=== PATIENT | male | born 1960 | race Caucasian/White ===

== ENCOUNTER → 2018-08-04 | Outpatient (CLI) | payer MEDICARE ==
[~2018-08-04] MED LIST: ADV250INH INH; ALBU0.084 INH; AMIT25TA10 PO; AVOD0.5C PO; BETA2500 PO; CETI10TA3 PO; CITA40TA PO; CLON1TAB PO; CYCL10TA3 PO; DILA2TAB6 PO; FLON0.05 INH; GUAI400T PO; MELO7.5T3 PO; NEUR300C PO; OMEP40CA2 PO; ONETAB4 PO; SAWPOW PO; ULTR50TA PO; VENTAER INH; ZOLP-189 PO
--- NOTE | 2018-08-04 15:11 | REP ---
LUMBAR SPINE SERIES: Five views. HISTORY: Low back pain. FINDINGS: Five views of the lumbar spine shows straightening of the normal lumbar lordosis. There is degenerative disc narrowing at the L4-5 with early osteophyte formation at this level. Mild discogenic spurring is seen anteriorly L3-4 and L2-3 as well. Pedicles and posterior elements are intact. There are clips in right upper quadrant of the abdomen. Sacrum and SI joints are intact. IMPRESSION: Degenerative disc changes most pronounced at L4-5. No acute abnormality. Electronically Signed by Zack Mendez MD 08/04/2018 03:14 P
== END ==
LOC: M RAD 12:38
PROVIDERS: ATTEND Physician Assistant
DX: M51.36 Other intervertebral disc degeneration, lumbar region (principal); M25.78 Osteophyte, vertebrae

== ENCOUNTER → 2018-12-06 | Outpatient (REF) | payer MEDICARE ==
[2018-12-06 16:58] LABS: PLATELET COUNT, AUTOMATED 289 10^3/uL (150-450)
[2018-12-06 17:14] LABS: INR 1.05; PROTHROMBIN TIME 13.4 SECONDS (11.8-14.0)
== END ==
LOC: M LABDRAW1 14:04
PROVIDERS: ATTEND Physical Medicine & Rehabilitation
DX: Z01.812 Encounter for preprocedural laboratory examination (principal); Z79.51 Long term (current) use of inhaled steroids; Z79.899 Other long term (current) drug therapy

== ENCOUNTER 2019-10-30 12:25 | Emergency (ER) | payer MEDICARE, OTHER ==
[~2019-10-30 12:25] MED LIST changes: +GI COCKTAIL 50ML BTL(HYOSCYAMINE/MAALOX/LIDOCAINE VISCOUS)(1:3:1) ONE; +KETOROLAC 30 MG/ML 1ML VIAL As Ordered ONE; +KETOROLAC 30 MG/ML 1ML VIAL ONE; +ONDANSETRON 4MG/2ML VIAL As Ordered ONE; +ONDANSETRON 4MG/2ML VIAL ONE
[2019-10-30] MEDS ORDERED: GI COCKTAIL 50ML BTL(HYOSCYAMINE/MAALOX/LIDOCAINE VISCOUS)(1:3:1) As Ordered ONE (12:55)
[2019-12-03 02:58] LABS: INR 0.91; PROTHROMBIN TIME 12.5 SECONDS (11.8-14.0)
[2019-12-03 03:23] LABS: HEMATOCRIT 41.6 % (42.0-52.0); HEMOGLOBIN 15.2 g/dl (13.5-17.5); MEAN CORPUSCULAR HEMOGLOBIN 35.8 pg (27.0-33.0); MEAN CORPUSCULAR HGB CONC 36.5 g/dl (32.0-36.5); MEAN CORPUSCULAR VOLUME 97.9 fl (80.0-96.0); PLATELET COUNT, AUTOMATED 261 10^3/uL (150-450); RED BLOOD COUNT 4.25 10^6/uL (4.30-6.10); WHITE BLOOD COUNT 7.4 10^3/uL (4.0-10.0)
[2019-12-03 03:37] LABS: APPEARANCE, URINE CLEAR (CLEAR); BACTERIA, URINE AUTO NEGATIVE (NEGATIVE); BILIRUBIN, URINE AUTO NEGATIVE (NEGATIVE); BLOOD, URINE BLOOD NEGATIVE (NEGATIVE); COLOR, URINE YELLOW (YELLOW); GLUCOSE, URINE (UA) AUTO NEGATIVE (NEGATIVE); KETONE, URINE AUTO NEGATIVE (NEGATIVE); LEUKOCYTE ESTERASE, URINE AUTO NEGATIVE (NEGATIVE); NITRITE, URINE AUTO NEGATIVE (NEGATIVE); PROTEIN, URINE AUTO NEGATIVE (NEGATIVE); RBC, URINE AUTO 0 /HPF (0-3); SPECIFIC GRAVITY URINE AUTO 1.015 (1.002-1.035); SQUAMOUS EPITHELIAL CELL UR AU 0 /HPF (0-6); UROBILINOGEN, URINE AUTO 0.2 mg/dL (0.0-2.0); WBC, URINE AUTO 0 /HPF (0-3)
[2019-12-05 21:49] LABS: ALBUMIN 3.9 GM/DL (3.2-5.2); ALT/SGPT 26 U/L (12-78); AMYLASE 44 U/L (25-115); BILIRUBIN,TOTAL 0.4 MG/DL (0.2-1.0); BLOOD UREA NITROGEN 9 MG/DL (7-18); CALCIUM LEVEL 8.9 MG/DL (8.5-10.1); CARBON DIOXIDE LEVEL 28 MEQ/L (21-32); CHLORIDE LEVEL 108 MEQ/L (98-107); CREATININE FOR GFR 0.83 MG/DL (0.70-1.30); GLOMERULAR FILTRATION RATE > 60.0 (>56); GLUCOSE, FASTING 85 MG/DL (70-100); LIPASE 155 U/L (73-393); POTASSIUM SERUM 4.8 MEQ/L (3.5-5.1); SODIUM LEVEL 139 MEQ/L (136-145); TOTAL PROTEIN 6.9 GM/DL (6.4-8.2)
== END 2019-10-30 14:50 | disposition home or self-care (01) ==
LOC: M ED 12:25
DX: K29.20 Alcoholic gastritis without bleeding (principal); F10.10 Alcohol abuse, uncomplicated; K46.9 Unspecified abdominal hernia without obstruction or gangrene; F17.200 Nicotine dependence, unspecified, uncomplicated; Z88.2 Allergy status to sulfonamides; Z88.6 Allergy status to analgesic agent
CPT/HCPCS: 74176; 80053; 81001; 82150; 83690; 85027; 85610; 96374; 96375; 99284; G0480; J1885; J2405

== ENCOUNTER 2020-06-29 11:40 | Emergency (ER) | payer MEDICARE ==
[~2020-06-29] VITALS: Ht 177.8 cm; Wt 77.3 kg
[~2020-06-29 11:40] MED LIST changes: -GI COCKTAIL 50ML BTL(HYOSCYAMINE/MAALOX/LIDOCAINE VISCOUS)(1:3:1) ONE; -KETOROLAC 30 MG/ML 1ML VIAL As Ordered ONE; -KETOROLAC 30 MG/ML 1ML VIAL ONE; -ONDANSETRON 4MG/2ML VIAL As Ordered ONE; -ONDANSETRON 4MG/2ML VIAL ONE
--- NOTE | 2020-06-29 12:28 | REP ---
INDICATION: CHEST PAIN. COMPARISON: PA and lateral chest dated 02/13/2016. TECHNIQUE: Portable AP chest with the patient upright, 2 AP views.. FINDINGS: The lung arriaga are clear. Cardiac size is normal. The olegario, mediastinum and skeletal structures are unremarkable. IMPRESSION: Essentially negative portable chest <Electronically signed by Aamir Hassan > 06/29/20 1228
[2020-06-29] MEDS ORDERED: methylPREDNISolone 125MG 2ML VIAL IV ONE (12:40)
[2020-06-29] MEDS ORDERED: ACETAMINOPHEN 325 MG TAB PO ONE (12:45)
[2020-06-29] MEDS: ALBUTEROL 90 MCG/ACT 8GM HFA INHALER INH SCH ×3 (12:55→13:31)
[2020-06-29 12:56] LABS: VENOUS HCO3 27.4 MEQ/L (23.0-27.0); VENOUS O2 SATURATION 79.9 % (60.0-80.0); VENOUS PARTIAL PRESSURE CO2 45.4 mmHg (38.0-50.0); VENOUS PARTIAL PRESSURE O2 40.8 mmHg (30.0-50.0); VENOUS PH 7.399 UNITS (7.330-7.430); VENOUS STANDARD HCO3 25.7 MEQ/L; VENOUS TOTAL CO2 28.8 MEQ/L (24.0-28.0)
[2020-06-29 13:01] LABS: BASO # 0.1 10^3/uL (0.0-0.2); BASO % 1.2 % (0.0-1.0); EOS # 0.1 10^3/uL (0.0-0.5); EOS % 0.5 % (0.0-3.0); HEMATOCRIT 45.3 % (42.0-52.0); HEMOGLOBIN 15.9 g/dl (13.5-17.5); LYMPH # 1.7 10^3/uL (1.5-5.0); LYMPH % 17.7 % (24.0-44.0); MEAN CORPUSCULAR HEMOGLOBIN 34.4 pg (27.0-33.0); MEAN CORPUSCULAR HGB CONC 35.1 g/dl (32.0-36.5); MEAN CORPUSCULAR VOLUME 98.1 fl (80.0-96.0); MONO # 0.8 10^3/uL (0.0-0.8); MONO % 8.5 % (2.0-8.0); NEUTROPHILS # 7.1 10^3/uL (1.5-8.5); NEUTROPHILS % 71.8 % (36.0-66.0); PLATELET COUNT, AUTOMATED 285 10^3/uL (150-450); RED BLOOD COUNT 4.62 10^6/uL (4.30-6.10); WHITE BLOOD COUNT 9.8 10^3/uL (4.0-10.0)
[2020-06-29 13:26] LABS: BLOOD UREA NITROGEN 9 MG/DL (7-18); CALCIUM LEVEL 9.2 MG/DL (8.5-10.1); CARBON DIOXIDE LEVEL 30 MEQ/L (21-32); CHLORIDE LEVEL 106 MEQ/L (98-107); CK-MB VALUE MASS 1.7 NG/ML (<3.6); CPK CREATINE PHOSPHOKINASE 74 U/L (39-308); CREATININE FOR GFR 0.79 MG/DL (0.70-1.30); GLOMERULAR FILTRATION RATE > 60.0 (>56); GLUCOSE, FASTING 95 MG/DL (70-100); NT-PRO BNP 25 PG/ML (<125); SODIUM LEVEL 139 MEQ/L (136-145); TROPONIN I < 0.02 NG/ML (< 0.10)
[2020-06-29 16:20] VITALS: BP 137/82
--- NOTE | 2020-06-29 19:12 | ECGEPIP ---
[facility] - ED Test Date: 2020-06-29 Pat Name: TRAVIS JADE Department: Room: - Gender: Male Director Outcomes: JAMIL : 1960 Requested By: Saima Capone Order Number: [id number] Reading MD: Saima Capone Measurements Intervals [place] Rate: 77 P: 74 RI: 124 QRS: 99 QRSD: 88 T: 79 QT: 350 QTc: 396 Interpretive Statements Normal sinus rhythm Rightward axis Nonspecific ST T wave changes Delayed R wave progression No prior ECG for comparison Electronically Signed on 06-29-2020 19:11:52 EDT by Saima Capone
== END 2020-06-29 16:20 | disposition home or self-care (01) ==
LOC: M ED 11:40
DX: B34.9 Viral infection, unspecified (principal); J44.1 Chronic obstructive pulmonary disease with (acute) exacerbation; M94.0 Chondrocostal junction syndrome [Tietze]; R06.02 Shortness of breath; J45.909 Unspecified asthma, uncomplicated; F17.200 Nicotine dependence, unspecified, uncomplicated; Z88.2 Allergy status to sulfonamides; Z88.5 Allergy status to narcotic agent; Z88.6 Allergy status to analgesic agent; Z88.1 Allergy status to other antibiotic agents; Z88.8 Allergy status to other drugs, medicaments and biological substances; Z79.899 Other long term (current) drug therapy; Z79.51 Long term (current) use of inhaled steroids
CPT/HCPCS: 71045; 80048; 82550; 82553; 82803; 83880; 84484; 85025; 87798; 93005; 93041; 96374; 99285; J2930

== ENCOUNTER 2020-08-26 12:44 | Emergency (ER) | payer MEDICARE ==
[~2020-08-26] VITALS: Ht 170.2 cm; Wt 52.7 kg
[2020-08-26] MEDS ORDERED: ONDA8TAB10 (13:01)
[2020-08-26] MEDS ORDERED: DULO1CAP6 (13:01)
[2020-08-26] MEDS ORDERED: ACET650T15 PO (13:01)
[2020-08-26] MEDS ORDERED: B-1100TA2 (13:01)
[2020-08-26] MEDS ORDERED: TIZA4TAB4 (13:01)
[2020-08-26] MEDS ORDERED: HYDR-3363 (13:01)
[2020-08-26] MEDS ORDERED: ONDANSETRON 4MG/2ML VIAL IV ONE (13:25)
[2020-08-26] MEDS ORDERED: NS 1,000 ML IV ONE (13:25)
[2020-08-26] MEDS ORDERED: KETOROLAC 30 MG/ML 1ML VIAL IV ONE (13:35)
[2020-08-26 13:44] LABS: BASO # 0.1 10^3/uL (0.0-0.2); BASO % 1.3 % (0.0-1.0); EOS # 0.1 10^3/uL (0.0-0.5); EOS % 0.7 % (0.0-3.0); HEMATOCRIT 41.4 % (42.0-52.0); HEMOGLOBIN 14.8 g/dl (13.5-17.5); LYMPH % 22.9 % (24.0-44.0); MEAN CORPUSCULAR HEMOGLOBIN 34.4 pg (27.0-33.0); MEAN CORPUSCULAR HGB CONC 35.7 g/dl (32.0-36.5); MEAN CORPUSCULAR VOLUME 96.3 fl (80.0-96.0); MONO # 0.8 10^3/uL (0.0-0.8); MONO % 9.2 % (2.0-8.0); NEUTROPHILS # 5.6 10^3/uL (1.5-8.5); NEUTROPHILS % 65.7 % (36.0-66.0); PLATELET COUNT, AUTOMATED 278 10^3/uL (150-450); WHITE BLOOD COUNT 8.6 10^3/uL (4.0-10.0)
[2020-08-26 14:07] LABS: ALBUMIN 3.8 GM/DL (3.2-5.2); ALT/SGPT 24 U/L (12-78); BILIRUBIN,DIRECT 0.1 MG/DL (0.0-0.2); BILIRUBIN,TOTAL 0.4 MG/DL (0.2-1.0); BLOOD UREA NITROGEN 13 MG/DL (7-18); CALCIUM LEVEL 9.4 MG/DL (8.5-10.1); CARBON DIOXIDE LEVEL 28 MEQ/L (21-32); CHLORIDE LEVEL 105 MEQ/L (98-107); CREATININE FOR GFR 0.93 MG/DL (0.70-1.30); GLOMERULAR FILTRATION RATE > 60.0 (>56); GLUCOSE, FASTING 117 MG/DL (70-100); LIPASE 137 U/L (73-393); POTASSIUM SERUM 3.9 MEQ/L (3.5-5.1); SODIUM LEVEL 138 MEQ/L (136-145); TOTAL PROTEIN 6.5 GM/DL (6.4-8.2)
--- NOTE | 2020-08-26 15:06 | REP ---
INDICATION: groin pain around inguinal hernia repair sites, constipation COMPARISON: 10/30/2019 TECHNIQUE: Axial noncontrast images from the lung bases to the pubic symphysis with coronal and sagittal reformations. This CT examination was performed using the following dose reduction techniques: Automated exposure control, adjustment of mA and/or kv according to the patient's size, and use of iterative reconstruction technique. FINDINGS: Lung bases demonstrate emphysematous changes. Visualized heart and pericardium normal. Liver, spleen, pancreas, bilateral adrenal glands and kidneys are normal. The enteric system is unremarkable and without obstruction or acute inflammatory process. Pelvis demonstrates normal bladder and age-appropriate prostate/seminal vesicles. Groin and bilateral inguinal regions appear normal. No ascites. No free air. No adenopathy. No focal inflammatory stranding. Abdominal aorta without aneurysm. Musculoskeletal structures are intact and without acute osseous abnormality. IMPRESSION: No acute abdominopelvic pathology appreciated. <Electronically signed by Ceferino Ulrich > 08/26/20 [id number]
[2020-08-26] MEDS ORDERED: COLA100C5 PO (16:12)
[2020-08-26] MEDS ORDERED: MIRA3350 PO (16:12)
[2020-08-26] MEDS ORDERED: KETO10TAB PO (16:12)
[2020-08-26 16:17] VITALS: BP 129/80
== END 2020-08-26 16:26 | disposition home or self-care (01) ==
LOC: EDBD 12:44 → M ED 12:44
DX: K59.00 Constipation, unspecified (principal); J44.9 Chronic obstructive pulmonary disease, unspecified; K21.9 Gastro-esophageal reflux disease without esophagitis; M51.9 Unspecified thoracic, thoracolumbar and lumbosacral intervertebral disc disorder; F33.9 Major depressive disorder, recurrent, unspecified; F41.9 Anxiety disorder, unspecified; Z79.899 Other long term (current) drug therapy; Z88.1 Allergy status to other antibiotic agents; Z88.2 Allergy status to sulfonamides; Z88.5 Allergy status to narcotic agent; Z88.8 Allergy status to other drugs, medicaments and biological substances
CPT/HCPCS: 36415; 74176; 80048; 80076; 81001; 83690; 85025; 96361; 96374; 96375; 99284; J1885; J2405

== ENCOUNTER 2020-08-29 12:06 | Emergency (ER) | payer MEDICARE ==
[~2020-08-29 12:06] MED LIST changes: +ACET650T15 PO; +B-1100TA2; +COLA100C5 PO; +DULO1CAP6; +HYDR-3363; +KETO10TAB PO; +MIRA3350 PO; +ONDA8TAB10; +TIZA4TAB4
[2020-08-29 14:22] LABS: BASO # 0.1 10^3/uL (0.0-0.2); BASO % 1.1 % (0.0-1.0); EOS # 0.1 10^3/uL (0.0-0.5); EOS % 0.6 % (0.0-3.0); HEMATOCRIT 39.5 % (42.0-52.0); HEMOGLOBIN 14.1 g/dl (13.5-17.5); LYMPH # 1.8 10^3/uL (1.5-5.0); LYMPH % 22.2 % (24.0-44.0); MEAN CORPUSCULAR HEMOGLOBIN 34.7 pg (27.0-33.0); MEAN CORPUSCULAR HGB CONC 35.7 g/dl (32.0-36.5); MEAN CORPUSCULAR VOLUME 97.3 fl (80.0-96.0); MONO # 0.6 10^3/uL (0.0-0.8); MONO % 7.7 % (2.0-8.0); NEUTROPHILS # 5.6 10^3/uL (1.5-8.5); PLATELET COUNT, AUTOMATED 265 10^3/uL (150-450); RED BLOOD COUNT 4.06 10^6/uL (4.30-6.10); WHITE BLOOD COUNT 8.2 10^3/uL (4.0-10.0)
[2020-08-29 14:49] LABS: ALBUMIN 3.7 GM/DL (3.2-5.2); ALT/SGPT 20 U/L (12-78); BILIRUBIN,DIRECT < 0.1 MG/DL (0.0-0.2); BILIRUBIN,TOTAL 0.5 MG/DL (0.2-1.0); LIPASE 79 U/L (73-393); TOTAL PROTEIN 6.4 GM/DL (6.4-8.2)
[2020-08-29] MEDS ORDERED: NS 500 ML IV ONE (15:55)
[2020-08-29] MEDS ORDERED: clonazePAM 1 MG TAB PO ONE (15:55)
[2020-08-29] MEDS ORDERED: ACETAMINOPHEN 325 MG TAB PO ONE (16:00)
[2020-08-29] MEDS: GASTROGRAFIN SOLUTION 30ML PO SCH ×2 (16:36→17:00)
[2020-08-29] MEDS ORDERED: ISOVUE-370 76% 100ML VIAL As Ordered ONE (17:52)
--- NOTE | 2020-08-29 18:54 | REPVR ---
PROCEDURE INFORMATION: Exam: CT Abdomen And Pelvis With Contrast Exam date and time: 08/29/2020 6:27 PM Age: 59 years old Clinical indication: Abdominal pain; Localized; Lower; Additional info: Severe lower abdominal pain, heme + stool TECHNIQUE: Imaging protocol: Computed tomography of the abdomen and pelvis with contrast. Radiation optimization: All CT scans at this facility use at least one of these dose optimization techniques: automated exposure control; mA and/or kV adjustment per patient size (includes targeted exams where dose is matched to clinical indication); or iterative reconstruction. Contrast material: ISOVUE 370; Contrast volume: 100 ml; Contrast route: INTRAVENOUS (IV); COMPARISON: CT ABD PELVIS W/O CONTRAST 08/26/2020 2:35 PM FINDINGS: Liver: Normal. No mass. Gallbladder and bile ducts: Normal. No calcified stones. No ductal dilation. Pancreas: Normal. No ductal dilation. Spleen: Normal. No splenomegaly. Adrenal glands: Normal. No mass. Kidneys and ureters: Normal. No hydronephrosis. Stomach and bowel: Unremarkable. No obstruction. No mucosal thickening. Appendix: No evidence of appendicitis. Intraperitoneal space: Unremarkable. No free air. No significant fluid collection. Vasculature: Unremarkable. No abdominal aortic aneurysm. Lymph nodes: Unremarkable. No enlarged lymph nodes. Urinary bladder: Unremarkable as visualized. Reproductive: Unremarkable as visualized. Bones/joints: Unremarkable. No acute fracture. Soft tissues: Unremarkable. IMPRESSION: No acute findings. Electronically signed by: Jovi Barnard On 08/29/2020 18:54:17 PM
[2020-08-29] MEDS ORDERED: CARA1TAB6 PO (19:18)
[2020-08-29] MEDS ORDERED: SUCRALFATE 1 GM TAB PO ONE (19:20)
[2020-08-29 19:41] VITALS: BP 141/91
== END 2020-08-29 19:48 | disposition home or self-care (01) ==
LOC: M ED 12:06 → EDBD 12:06 → M ED 19:48
DX: R10.30 Lower abdominal pain, unspecified (principal); K62.9 Disease of anus and rectum, unspecified; K92.1 Melena; F33.9 Major depressive disorder, recurrent, unspecified; F41.9 Anxiety disorder, unspecified; K27.9 Peptic ulcer, site unspecified, unspecified as acute or chronic, without hemorrhage or perforation; K21.9 Gastro-esophageal reflux disease without esophagitis; K59.00 Constipation, unspecified; Z87.19 Personal history of other diseases of the digestive system; Z79.899 Other long term (current) drug therapy; Z88.1 Allergy status to other antibiotic agents; Z88.2 Allergy status to sulfonamides; Z88.5 Allergy status to narcotic agent; Z88.8 Allergy status to other drugs, medicaments and biological substances; F17.210 Nicotine dependence, cigarettes, uncomplicated; F12.20 Cannabis dependence, uncomplicated
CPT/HCPCS: 74177; 80047; 80076; 83605; 83690; 85025; 86850; 86900; 86901; 96360; 99284; Q9963; Q9967

== ENCOUNTER 2020-09-07 20:30 | Emergency (ER) | payer MEDICARE ==
[~2020-09-07 20:30] MED LIST changes: +CARA1TAB6 PO
[2020-09-07] MEDS ORDERED: ONDANSETRON 4MG/2ML VIAL IV ONE (21:00)
[2020-09-07] MEDS ORDERED: methylPREDNISolone 125MG 2ML VIAL IV ONE (21:00)
[2020-09-07] MEDS ORDERED: MORPHINE 4 MG/ML 1ML VIAL/SYRINGE (J2270) IV PRN (21:00)
[2020-09-07 21:10] LABS: BASO # 0.1 10^3/uL (0.0-0.2); BASO % 0.8 % (0.0-1.0); EOS # 0.1 10^3/uL (0.0-0.5); EOS % 1.1 % (0.0-3.0); HEMATOCRIT 37.9 % (42.0-52.0); HEMOGLOBIN 13.9 g/dl (13.5-17.5); LYMPH # 2.3 10^3/uL (1.5-5.0); LYMPH % 24.7 % (24.0-44.0); MEAN CORPUSCULAR HEMOGLOBIN 34.2 pg (27.0-33.0); MEAN CORPUSCULAR VOLUME 93.1 fl (80.0-96.0); MONO # 0.9 10^3/uL (0.0-0.8); MONO % 10.3 % (2.0-8.0); NEUTROPHILS # 5.7 10^3/uL (1.5-8.5); NEUTROPHILS % 62.9 % (36.0-66.0); PLATELET COUNT, AUTOMATED 289 10^3/uL (150-450); RED BLOOD COUNT 4.07 10^6/uL (4.30-6.10); WHITE BLOOD COUNT 9.1 10^3/uL (4.0-10.0)
[2020-09-07] MEDS ORDERED: ALBUTEROL SULFATE 2.5 MG/0.5 ML INH NEB SOLN INH ONE (21:10)
[2020-09-07 21:16] LABS: VENOUS HCO3 26.3 MEQ/L (23.0-27.0); VENOUS O2 SATURATION 64.2 % (60.0-80.0); VENOUS PARTIAL PRESSURE CO2 36.2 mmHg (38.0-50.0); VENOUS PARTIAL PRESSURE O2 29.9 mmHg (30.0-50.0); VENOUS PH 7.479 UNITS (7.330-7.430); VENOUS STANDARD HCO3 26.2 MEQ/L; VENOUS TOTAL CO2 27.4 MEQ/L (24.0-28.0)
[2020-09-07 21:24] LABS: ALT/SGPT 27 U/L (12-78); BILIRUBIN,DIRECT 0.2 MG/DL (0.0-0.2); BILIRUBIN,TOTAL 0.5 MG/DL (0.2-1.0); BLOOD UREA NITROGEN 8 MG/DL (7-18); CALCIUM LEVEL 9.3 MG/DL (8.5-10.1); CARBON DIOXIDE LEVEL 29 MEQ/L (21-32); CHLORIDE LEVEL 101 MEQ/L (98-107); CK-MB VALUE MASS 3.7 NG/ML (<3.6); CPK CREATINE PHOSPHOKINASE 216 U/L (39-308); CREATININE FOR GFR 0.82 MG/DL (0.70-1.30); GLOMERULAR FILTRATION RATE > 60.0 (>56); GLUCOSE, FASTING 97 MG/DL (70-100); LIPASE 665 U/L (73-393); MB/CK RELATIVE INDEX 1.71 (< OR =4); NT-PRO BNP 45 PG/ML (<125); POTASSIUM SERUM 3.1 MEQ/L (3.5-5.1); SODIUM LEVEL 136 MEQ/L (136-145); TROPONIN I < 0.02 NG/ML (< 0.10)
[2020-09-07 22:16] LABS: MEAN CORPUSCULAR HGB CONC 36.7 g/dl (32.0-36.5)
--- NOTE | 2020-09-07 23:00 | REPVR ---
PROCEDURE INFORMATION: Exam: XR Chest Exam date and time: 09/07/2020 10:00 PM Age: 59 years old Clinical indication: Cough; Additional info: Dyspnea/cough TECHNIQUE: Imaging protocol: XR of the chest. Views: 1 view. COMPARISON: WI PORTABLE CHEST X-RAY 06/29/2020 12:09 PM FINDINGS: Lungs: Lungs are hyperinflated, suggesting diffuse air trapping. No evidence of pulmonary edema. No focal airspace process. No parenchymal lung mass. Pleural spaces: No pneumothorax. No pleural effusion. Heart/Mediastinum: Cardiac silhouette is within normal limits. No mediastinal adenopathy or hilar mass. Bones/joints: Bony structures and extrathoracic soft tissues are unremarkable for age. IMPRESSION: 1. No acute cardiopulmonary process. 2. Hyperinflated lungs with lucent lung parenchyma, suggesting COPD with air trapping. Electronically signed by: Marko Linares On 09/07/2020 23:00:11 PM
[2020-09-08] MEDS ORDERED: ISOVUE-370 76% 100ML VIAL As Ordered ONE (00:16)
[2020-09-08] MEDS ORDERED: GASTROGRAFIN SOLUTION 30ML (Q9963) As Ordered ONE (01:03)
[2020-09-08] MEDS ORDERED: SUCRALFATE 1 GM TAB PO ONE (01:15)
[2020-09-08] MEDS: GASTROGRAFIN SOLUTION 30ML PO SCH ×2 (01:20→02:25)
--- NOTE | 2020-09-08 04:41 | REPVR ---
PROCEDURE INFORMATION: Exam: CTA Chest With Contrast Exam date and time: 09/08/2020 3:38 AM Age: 59 years old Clinical indication: Shortness of breath; Chest wall pain; Additional info: SOB, chest, abd pain TECHNIQUE: Imaging protocol: Computed tomographic angiography of the chest with contrast. 3D rendering (Not supervised by radiologist): MIP and/or 3D reconstructed images were created by the technologist. Radiation optimization: All CT scans at this facility use at least one of these dose optimization techniques: automated exposure control; mA and/or kV adjustment per patient size (includes targeted exams where dose is matched to clinical indication); or iterative reconstruction. Contrast material: ISOVUE 370; Contrast volume: 100 ml; Contrast route: INTRAVENOUS (IV); COMPARISON: CR PORTABLE CHEST X-RAY 09/07/2020 9:14 PM FINDINGS: Pulmonary arteries: The main pulmonary artery measures 22 mm. No central pulmonary embolism is identified. Aorta: The ascending thoracic aorta measures 28 mm. Lungs: Mild bilateral lower lobe bullous change with slight interstitial prominence in the remaining lungs. Pleural spaces: Unremarkable. No pneumothorax. No pleural effusion. Heart: Unremarkable. No cardiomegaly. No pericardial effusion. Lymph nodes: Unremarkable. No enlarged lymph nodes. Gallbladder and bile ducts: Status post cholecystectomy. Bones/joints: Unremarkable. No acute fracture. Soft tissues: Unremarkable. IMPRESSION: 1. Mild bilateral lower lobe bullous change with slight diffuse interstitial prominence. 2. Otherwise negative CTA chest. No central pulmonary embolism is identified. Electronically signed by: Kirill Ford On 09/08/2020 04:41:45 AM
--- NOTE | 2020-09-08 04:47 | REPVR ---
PROCEDURE INFORMATION: Exam: CT Abdomen And Pelvis With Contrast Exam date and time: 09/08/2020 3:38 AM Age: 59 years old Clinical indication: Abdominal pain; Generalized; Additional info: SOB, chest, abd pain TECHNIQUE: Imaging protocol: Computed tomography of the abdomen and pelvis with contrast. Radiation optimization: All CT scans at this facility use at least one of these dose optimization techniques: automated exposure control; mA and/or kV adjustment per patient size (includes targeted exams where dose is matched to clinical indication); or iterative reconstruction. Contrast material: ISOVUE 370; Contrast volume: 100 ml; Contrast route: INTRAVENOUS (IV); COMPARISON: CT ABD/PEL W/IV ORAL CONTRAS 08/29/2020 6:08 PM FINDINGS: Lungs: Mild bilateral lower lobe bullous change with slight interstitial prominence. Liver: Normal. No mass. Gallbladder and bile ducts: Status post cholecystectomy. Mild biliary dilation which is attributed to prior cholecystectomy and is likely physiologic. The CBD measures 8 mm with tapering to the ampulla. Pancreas: Normal. No ductal dilation. Spleen: Normal. No splenomegaly. Adrenal glands: Normal. No mass. Kidneys and ureters: Normal. No hydronephrosis. Stomach and bowel: Unremarkable. No obstruction. No mucosal thickening. Appendix: There are no changes of appendicitis. A normal appendix is not seen. Intraperitoneal space: Unremarkable. No free air. No significant fluid collection. Vasculature: Unremarkable. No abdominal aortic aneurysm. Lymph nodes: Unremarkable. No enlarged lymph nodes. Urinary bladder: Unremarkable as visualized. Reproductive: Unremarkable as visualized. Bones/joints: Unremarkable. No acute fracture. Soft tissues: Unremarkable. IMPRESSION: 1. Mild bilateral lower lobe bullous change with slight interstitial prominence. 2. Status post cholecystectomy. 3. Otherwise negative CT abdomen/pelvis with little change from 08/29/2020. Electronically signed by: Kirill Ford On 09/08/2020 04:47:26 AM
[2020-09-08] MEDS ORDERED: LORazepam 2 MG/ML VIAL IV STA (04:49)
[2020-09-08] MEDS ORDERED: PRED20TA PO (07:15)
[2020-09-08] MEDS ORDERED: ATIV1TAB10 PO (07:15)
[2020-09-08 07:27] VITALS: BP 124/86
--- NOTE | 2020-09-09 16:43 | ECGEPIP ---
[facility] - ED Test Date: 2020-09-07 Pat Name: TRAVIS JADE Department: Room: - Gender: Male Field Technical Support Consultant: Erasmo CORMIER : 1960 Requested By: JACEK Kilpatrick Order Number: [id number] Reading MD: Chelsi Lizama Measurements Intervals [place] Rate: 83 P: 85 [place]: 132 QRS: 81 QRSD: 74 T: 81 QT: 356 QTc: 418 Interpretive Statements Normal sinus rhythm irbbb NSTTW abnormalities similar 06/29/20 Electronically Signed on 09-09-2020 16:42:58 EDT by Chelsi Lizama
== END 2020-09-08 07:31 | disposition home or self-care (01) ==
LOC: M ED 20:30
DX: F41.0 Panic disorder [episodic paroxysmal anxiety] (principal); J44.9 Chronic obstructive pulmonary disease, unspecified; G89.29 Other chronic pain; M54.9 Dorsalgia, unspecified; Z99.81 Dependence on supplemental oxygen; Z79.899 Other long term (current) drug therapy; Z88.1 Allergy status to other antibiotic agents; Z88.2 Allergy status to sulfonamides; Z88.5 Allergy status to narcotic agent; Z88.8 Allergy status to other drugs, medicaments and biological substances; F17.210 Nicotine dependence, cigarettes, uncomplicated
CPT/HCPCS: 71045; 71275; 74177; 80048; 80076; 82550; 82553; 82803; 83605; 83690; 83880; 84484; 85025; 87040; 87798; 93005; 93041; 94640; 96374; 96375; 99285; J2060; J2270; J2405; J2930; Q9967

== ENCOUNTER → 2020-09-24 | Outpatient (CLI) | payer MEDICARE ==
[~2020-09-24] MED LIST changes: +ATIV1TAB10 PO; +PRED20TA PO
--- NOTE | 2020-09-24 12:59 | REP ---
INDICATION: BI INGUINAL HERNIA, WO OBS OR KALLIE COMPARISON: 10/17/2014 TECHNIQUE: Limited pelvic ultrasound using curved array transducer. FINDINGS: Ultrasound examination of the bilateral inguinal region demonstrates no obvious abnormality. No fluid collection. No mass. No evidence for hernia. IMPRESSION: Normal examination. No evidence for inguinal hernia. <Electronically signed by Ceferino Ulrich > 09/24/20 1779
== END ==
LOC: M RAD 12:06
PROVIDERS: ATTEND Surgery
DX: K40.20 Bilateral inguinal hernia, without obstruction or gangrene, not specified as recurrent (principal)

== ENCOUNTER 2020-11-20 10:52 | Emergency (ER) | payer MEDICARE ==
[~2020-11-20] VITALS: Ht 167.6 cm; Wt 50.0 kg
[2020-11-20] MEDS ORDERED: NS 1,000 ML IV ONE (11:55)
[2020-11-20 12:00] LABS: BASO # 0.1 10^3/uL (0.0-0.2); EOS % 0.3 % (0.0-3.0); HEMATOCRIT 44.2 % (42.0-52.0); HEMOGLOBIN 15.8 g/dl (13.5-17.5); LYMPH # 1.6 10^3/uL (1.5-5.0); LYMPH % 14.2 % (24.0-44.0); MEAN CORPUSCULAR HEMOGLOBIN 34.7 pg (27.0-33.0); MEAN CORPUSCULAR HGB CONC 35.7 g/dl (32.0-36.5); MEAN CORPUSCULAR VOLUME 97.1 fl (80.0-96.0); MONO # 1.1 10^3/uL (0.0-0.8); MONO % 10.2 % (2.0-8.0); NEUTROPHILS # 8.2 10^3/uL (1.5-8.5); NEUTROPHILS % 73.8 % (36.0-66.0); PLATELET COUNT, AUTOMATED 311 10^3/uL (150-450); RED BLOOD COUNT 4.55 10^6/uL (4.30-6.10); WHITE BLOOD COUNT 11.1 10^3/uL (4.0-10.0)
[2020-11-20 12:34] LABS: ALBUMIN 4.1 GM/DL (3.2-5.2); ALT/SGPT 40 U/L (12-78); BILIRUBIN,DIRECT 0.1 MG/DL (0.0-0.2); BILIRUBIN,TOTAL 0.4 MG/DL (0.2-1.0); BLOOD UREA NITROGEN 17 MG/DL (7-18); CALCIUM LEVEL 9.7 MG/DL (8.5-10.1); CARBON DIOXIDE LEVEL 29 MEQ/L (21-32); CHLORIDE LEVEL 104 MEQ/L (98-107); CREATININE FOR GFR 0.83 MG/DL (0.70-1.30); GLOMERULAR FILTRATION RATE > 60.0 (>56); GLUCOSE, FASTING 88 MG/DL (70-100); LIPASE 167 U/L (73-393); POTASSIUM SERUM 4.2 MEQ/L (3.5-5.1); SODIUM LEVEL 139 MEQ/L (136-145); TOTAL PROTEIN 7.4 GM/DL (6.4-8.2)
[2020-11-20] MEDS ORDERED: DICYCLOMINE INJ 20MG/2ML (J0500) IM ONE (14:00)
--- NOTE | 2020-11-20 14:51 | REP ---
INDICATION: abd pain, acute on chronic. COMPARISON: None. TECHNIQUE: Upright view to include the lower chest and abdomen along with supine view of the abdomen and pelvis. FINDINGS: Lung bases are clear. No evidence for pneumoperitoneum. No evidence for bowel obstruction. Prior cholecystectomy. Skeletal structures demonstrate age-related changes. IMPRESSION: Nonspecific bowel gas pattern. <Electronically signed by Ceferino Ulrich > 11/20/20 [id number]
[2020-11-20] MEDS ORDERED: DICY10CA13 PO (15:22)
[2020-11-20 16:06] VITALS: BP 158/87
--- NOTE | 2020-11-21 18:43 | ECGEPIP ---
[facility] - ED Test Date: 2020-11-20 Pat Name: TRAVIS JADE Department: Room: - Gender: Male Autos Disassembler: JAMES : 1960 Requested By: GARCÍA Umana Order Number: [id number] Reading MD: Chelsi Lizama Measurements Intervals [place] Rate: 72 P: 78 MN: 136 QRS: 94 QRSD: 78 T: 84 QT: 358 QTc: 392 Interpretive Statements Normal sinus rhythm Rightward axis Septal infarct , age undetermined irbbb decreased rate 09/07/20 Electronically Signed on 11-21-2020 18:43:51 EDT by Chelsi Lizama
== END 2020-11-20 16:09 | disposition home or self-care (01) ==
LOC: M ED 10:52
DX: K66.0 Peritoneal adhesions (postprocedural) (postinfection) (principal); I45.19 Other right bundle-branch block; Z79.899 Other long term (current) drug therapy; Z88.1 Allergy status to other antibiotic agents; Z88.2 Allergy status to sulfonamides; Z88.5 Allergy status to narcotic agent; Z88.8 Allergy status to other drugs, medicaments and biological substances; F17.210 Nicotine dependence, cigarettes, uncomplicated
CPT/HCPCS: 74019; 80048; 80076; 83605; 83690; 85025; 86850; 86900; 86901; 93005; 96360; 96361; 96372; 99284; J0500

== ENCOUNTER → 2020-12-13 | Outpatient (CLI) | payer MEDICARE ==
[~2020-12-13] MED LIST changes: +ALBU83IN INH; +AMBI10TA PO; +AMIT50TA PO; -B-1100TA2; +B-1100TA2 PO; +BETA250027 PO; +BUDE10.7 IH; +CETI10TA PO; +CITA20TA6 PO; +CLON1TAB8 PO; +CYCL-707 PO; +DICY10CA13 PO; -DULO1CAP6; +DULO1CAP6 PO; +EFFE75CA2 PO; +FLON1SPR; +GUAI400T9 PO; -HYDR-3363; +HYDR-3363 PO; +MUCI600T31 PO; +OMEP40CA4 PO; -ONDA8TAB10; +ONDA8TAB10 PO; +POTA10TA16 PO; -TIZA4TAB4; +TIZA4TAB4 PO; +VITMTA PO
== END ==
LOC: M LABSMTC 10:41
PROVIDERS: ATTEND Anesthesiology
DX: Z01.812 Encounter for preprocedural laboratory examination (principal); Z20.822 Contact with and (suspected) exposure to COVID-19

== ENCOUNTER 2020-12-18 09:16 | Day surgery (SDC) | payer MEDICARE ==
[~2020-12-18] VITALS: Ht 167.6 cm; Wt 50.1 kg
[~2020-12-18 09:16] MED LIST changes: +NS 1,000 ML IV ONE
[2020-12-18] MEDS ORDERED: propofoL 500 MG/50 ML VIAL As Ordered ONE (10:14)
[2020-12-18] MEDS ORDERED: fentaNYL 100 MCG/2 ML INJECTION (J3010) As Ordered ONE (10:15)
[2020-12-18] MEDS ORDERED: LIDOCAINE 2% 100MG/5ML SDV (FOR ANES.) As Ordered ONE (11:51)
[2020-12-18] MEDS ORDERED: ePHEDrine SULFATE 25 MG/5 ML(5MG/ML) SYRINGE As Ordered ONE (11:54)
[2020-12-18] MEDS ORDERED: PHENYLephrine 500MCG 5ML (100MCG/ML) SYRINGE As Ordered ONE (11:56)
--- NOTE | 2020-12-18 12:12 | ROOR ---
Patient Name: Aman Wade Procedure Date: 12/18/2020 11:28 AM Date of : 1960 Age: 59 Room: [facility] Gender: Male Note Status: Finalized Procedure: Upper GI endoscopy Indications: Generalized abdominal pain, Nausea with vomiting Providers: Rogers Sierra MD Referring MD: RUY RUTLEDGE MD Requesting Provider: Medicines: Monitored Anesthesia Care Complications: No immediate complications. Procedure: Pre-Anesthesia Assessment: - Prior to the procedure, a History and Physical was performed, and patient medications and allergies were reviewed. The patient is competent. The risks and benefits of the procedure and the sedation options and risks were discussed with the patient. All questions were answered and informed consent was obtained. Patient identification and proposed procedure were verified by the physician, the nurse and the senior staff specialized employment in the endoscopy suite. Mental Status Examination: alert and oriented. Airway Examination: normal oropharyngeal airway and neck mobility. Respiratory Examination: clear to auscultation. CV Examination: normal. Prophylactic Antibiotics: The patient does not require prophylactic antibiotics. Prior Anticoagulants: The patient has taken no previous anticoagulant or antiplatelet agents. ASA Grade Assessment: III - A patient with severe systemic disease. After reviewing the risks and benefits, the patient was deemed in satisfactory condition to undergo the procedure. The anesthesia plan was to use monitored anesthesia care (MAC). Immediately prior to administration of medications, the patient was re-assessed for adequacy to receive sedatives. The heart rate, respiratory rate, oxygen saturations, blood pressure, adequacy of pulmonary ventilation, and response to care were monitored throughout the procedure. The physical status of the patient was re-assessed after the procedure. The Endoscope was introduced through the mouth, and advanced to the second part of duodenum. The upper GI endoscopy was accomplished without difficulty. The patient tolerated the procedure well. Findings: The examined esophagus was normal. The Z-line was regular and was found 36 cm from the incisors. A small hiatal hernia was present. Striped mildly erythematous mucosa without bleeding was found in the gastric antrum. This was biopsied with a cold forceps for Helicobacter pylori testing. The first portion of the duodenum and second portion of the duodenum were normal. Estimated blood loss: none. Bilious fluid was found in the gastric body. Impression: - Normal esophagus. - Z-line regular, 36 cm from the incisors. - Small hiatal hernia. - Erythematous mucosa in the antrum. Biopsied. - Normal first portion of the duodenum and second portion of the duodenum. Recommendation: - Use sucralfate tablets 1 gram PO BID indefinitely. Procedure Code(s): --- Professional --- 42553, Esophagogastroduodenoscopy, flexible, transoral; with biopsy, single or multiple Diagnosis Code(s): --- Professional --- K44.9, Diaphragmatic hernia without obstruction or gangrene K31.89, Other diseases of stomach and duodenum R10.84, Generalized abdominal pain R11.2, Nausea with vomiting, unspecified CPT copyright 2019 [employer]. All rights reserved. The codes documented in this report are preliminary and upon classification control clerk review may be revised to meet current compliance requirements. Rogers Sierra MD Rogers Sierra MD 12/18/2020 12:11:56 PM Electronically signed by Rogers Sierra MD Number of Addenda: 0 Note Initiated On: 12/18/2020 11:28 AM Estimated Blood Loss: Estimated blood loss was minimal.
--- NOTE | 2020-12-18 12:15 | ROOR ---
Patient Name: Aman Wade Procedure Date: 12/18/2020 11:29 AM Date of : 1960 Age: 59 Room: [facility] Gender: Male Note Status: Finalized Procedure: Colonoscopy Indications: Change in bowel habits Providers: Rogers Sierra MD Referring MD: RUY RUTLEDGE MD Requesting Provider: Medicines: Monitored Anesthesia Care Complications: No immediate complications. Procedure: Pre-Anesthesia Assessment: - Prior to the procedure, a History and Physical was performed, and patient medications and allergies were reviewed. The patient is competent. The risks and benefits of the procedure and the sedation options and risks were discussed with the patient. All questions were answered and informed consent was obtained. Patient identification and proposed procedure were verified by the physician, the nurse and the keymodule assembly supervisor in the endoscopy suite. Mental Status Examination: alert and oriented. Airway Examination: normal oropharyngeal airway and neck mobility. Respiratory Examination: clear to auscultation. CV Examination: normal. Prophylactic Antibiotics: The patient does not require prophylactic antibiotics. Prior Anticoagulants: The patient has taken no previous anticoagulant or antiplatelet agents. ASA Grade Assessment: III - A patient with severe systemic disease. After reviewing the risks and benefits, the patient was deemed in satisfactory condition to undergo the procedure. The anesthesia plan was to use monitored anesthesia care (MAC). Immediately prior to administration of medications, the patient was re-assessed for adequacy to receive sedatives. The heart rate, respiratory rate, oxygen saturations, blood pressure, adequacy of pulmonary ventilation, and response to care were monitored throughout the procedure. The physical status of the patient was re-assessed after the procedure. The Colonoscope was introduced through the anus and advanced to the cecum, identified by appendiceal orifice and ileocecal valve. The colonoscopy was somewhat difficult due to poor bowel prep. Successful completion of the procedure was aided by lavage. Findings: The perianal and digital rectal examinations were normal. There is no endoscopic evidence of bleeding, inflammation, mass, stenosis, stricture or ulcerations in the entire colon. unable to clear about 30-40% of the wall with thick liquid stool throughout whole colon, Impression: - No specimens collected. Recommendation: - Discharge patient to home (ambulatory). - Use original regular Metamucil one tablespoon PO daily indefinitely. Procedure Code(s): --- Professional --- 25236, Colonoscopy, flexible; diagnostic, including collection of specimen(s) by brushing or washing, when performed (separate procedure) Diagnosis Code(s): --- Professional --- R19.4, Change in bowel habit CPT copyright 2019 [employer]. All rights reserved. The codes documented in this report are preliminary and upon business leader review may be revised to meet current compliance requirements. Rogers Sierra MD Rogers Sierra MD 12/18/2020 12:15:18 PM Electronically signed by Rogers Sierra MD Number of Addenda: 0 Note Initiated On: 12/18/2020 11:29 AM Estimated Blood Loss: Estimated blood loss: none.
[2020-12-18 12:42] VITALS: BP 123/82
== END 2020-12-18 12:55 | disposition home or self-care (01) ==
LOC: M OPP 09:16
PROVIDERS: ATTEND Surgery
DX: R19.4 Change in bowel habit (principal); K44.9 Diaphragmatic hernia without obstruction or gangrene; K31.89 Other diseases of stomach and duodenum; R10.84 Generalized abdominal pain; R11.2 Nausea with vomiting, unspecified; Z79.899 Other long term (current) drug therapy; Z88.1 Allergy status to other antibiotic agents; Z88.5 Allergy status to narcotic agent; Z88.8 Allergy status to other drugs, medicaments and biological substances; F17.210 Nicotine dependence, cigarettes, uncomplicated
CPT/HCPCS: 43239; 45378; 88305; J2370; J3010

== ENCOUNTER → 2021-02-28 | Outpatient (CLI) | payer MEDICARE ==
[~2021-02-28] MED LIST changes: -NS 1,000 ML IV ONE
--- NOTE | 2021-03-02 06:09 | REP ---
INDICATION: NICOTINE DEPENDENCE COMPARISON: 09/08/2020 TECHNIQUE: Axial noncontrast images from the thoracic inlet to the upper abdomen using low-dose lung screening technique (LDCT). FINDINGS: Moderate early advanced emphysematous changes including bronchiectasis along with scattered chronic interstitial changes are essentially unchanged. Small nonspecific 2-3 mm densities and small 6 mm non solid ground-glass nodular density noted (series 201; image 33). No acute consolidation, suspicious nodule or mass otherwise identified. No effusion. No pneumothorax. No obvious adenopathy. IMPRESSION: Lung-RADS category 2. Chronic emphysematous and interstitial changes. Management recommendations include annual low-dose CT surveillance. <Electronically signed by Ceferino Ulrich > 03/02/21 0630
== END ==
LOC: M RAD 13:05
PROVIDERS: ATTEND Internal Medicine Pulmonary Disease
DX: Z12.2 Encounter for screening for malignant neoplasm of respiratory organs (principal); F17.210 Nicotine dependence, cigarettes, uncomplicated

== ENCOUNTER → 2021-04-24 | Outpatient (CLI) | payer MEDICARE ==
[~2021-04-24] MED LIST changes: +ONDA-84 PO; -ONDA8TAB10 PO; +POTA-149 PO; -POTA10TA16 PO; +TIZA10TA PO; -TIZA4TAB4 PO
== END ==
LOC: M LAB 15:41
PROVIDERS: ATTEND Internal Medicine
DX: J44.9 Chronic obstructive pulmonary disease, unspecified (principal)

== ENCOUNTER → 2021-10-06 | Outpatient (CLI) | payer OTHER ==
[~2021-10-06] MED LIST changes: +ALBU2.5V10 INH; -ALBU83IN INH
== END ==
LOC: M RAD 15:09
PROVIDERS: ATTEND Internal Medicine Pulmonary Disease
DX: J43.9 Emphysema, unspecified (principal)

== ENCOUNTER → 2022-04-21 | Outpatient (REF) | payer OTHER, MEDICAID ==
[2022-04-21 19:03] LABS: APPEARANCE, URINE MANUAL CLEAR (CLEAR); COLOR, URINE MANUAL YELLOW (YELLOW)
[2022-04-21 19:04] LABS: BILIRUBIN, URINE MANUAL NEGATIVE (NEGATIVE); BLOOD URINE MANUAL NEGATIVE (NEGATIVE); GLUCOSE, URINE (UA) MANUAL NEGATIVE (NEGATIVE); KETONE, URINE MANUAL NEGATIVE (NEGATIVE); LEUKOCYTE ESTERASE, URINE MAN NEGATIVE (NEGATIVE); NITRITE, URINE MANUAL NEGATIVE (NEGATIVE); PROTEIN, URINE MANUAL NEGATIVE (NEGATIVE); SPECIFIC GRAVITY,URINE MANUAL 1.025 (1.002-1.035); UROBILINOGEN, URINE MANUAL NORMAL (NORMAL)
== END ==
LOC: M SMT 17:06
PROVIDERS: ATTEND Physician Assistant
DX: R30.0 Dysuria (principal)

== ENCOUNTER → 2022-05-06 | Outpatient (CLI) | payer MEDICAID, OTHER | LOC: M RAD 13:32 | PROVIDERS: ATTEND Physician Assistant | DX: R30.0 Dysuria (principal) ==

== ENCOUNTER → 2022-07-03 | Outpatient (CLI) | payer OTHER, MEDICAID | LOC: M LAB 14:39 | PROVIDERS: ATTEND Physician Assistant | DX: Z12.5 Encounter for screening for malignant neoplasm of prostate (principal) | CPT/HCPCS: 36415; G0103 ==

== ENCOUNTER 2022-09-25 14:18 | Emergency (ER) | payer OTHER, MEDICAID ==
[~2022-09-25] VITALS: Ht 167.6 cm; Wt 52.2 kg
[2022-09-25 14:30] VITALS: TEMP 98.6
[2022-09-25] MEDS ORDERED: IPRATROPIUM 0.5MG/ALBUTEROL 2.5MG INH SOL UD 3ML (DUONEB) NEB PRN (14:30)
[2022-09-25 14:43] LABS: ABG BASE EXCESS 0.4 (-2.0-2.0); ABG HCO3 20.6 MMOL/L (22.0-26.0); ABG O2 SATURATION 96.8 % (95.0-99.0); ABG PARTIAL PRESSURE CO2 22.9 mmHg (35.0-45.0); ABG PARTIAL PRESSURE O2 77.2 mmHg (75.0-100.0); ABG STANDARD HCO3 24.8 MMOL/L. (22.0-26.0); ABG TOTAL CO2 21.3 MMOL/L (23.0-31.0); ABG pH (ARTERIAL) 7.571 UNITS (7.350-7.450)
[2022-09-25 14:51] LABS: BASO # 0.1 10^3/uL (0.0-0.2); BASO % 0.8 % (0.0-1.0); EOS # 0.1 10^3/uL (0.0-0.5); EOS % 0.5 % (0.0-3.0); HEMATOCRIT 39.5 % (42.0-52.0); HEMOGLOBIN 14.2 g/dl (13.5-17.5); LYMPH # 1.4 10^3/uL (1.5-5.0); LYMPH % 11.1 % (24.0-44.0); MEAN CORPUSCULAR HEMOGLOBIN 33.8 pg (27.0-33.0); MEAN CORPUSCULAR HGB CONC 35.9 g/dl (32.0-36.5); MONO # 1.2 10^3/uL (0.0-0.8); MONO % 9.7 % (2.0-8.0); NEUTROPHILS # 9.9 10^3/uL (1.5-8.5); NEUTROPHILS % 77.6 % (36.0-66.0); PLATELET COUNT, AUTOMATED 249 10^3/uL (150-450); WHITE BLOOD COUNT 12.7 10^3/uL (4.0-10.0)
[2022-09-25] MEDS: ALBUTEROL SULFATE 2.5MG/0.5ML INH NEB SOLN NEB PRN ×2 (15:08→15:35)
[2022-09-25 15:16] LABS: ALKALINE PHOSPHATASE 132 U/L (46-116); ALT/SGPT 27 U/L (7.0-40); AST/SGOT 29 U/L (<34); BILIRUBIN,DIRECT 0.1 MG/DL (<0.4); BILIRUBIN,TOTAL 0.5 MG/DL (0.3-1.2); BLOOD UREA NITROGEN 15 MG/DL (9-23); CALCIUM LEVEL 10.3 MG/DL (8.3-10.6); CARBON DIOXIDE LEVEL 27 MMOL/L (20-31); CHLORIDE LEVEL 103 MMOL/L (98-107); CK-MB VALUE MASS 2.8 NG/ML (<3.6); CREATININE FOR GFR 0.81 MG/DL (0.70-1.30); GLOMERULAR FILTRATION RATE > 60.0 (>49); GLUCOSE, FASTING 92 MG/DL (74-106); SODIUM LEVEL 139 MMOL/L (136-145); TOTAL PROTEIN 6.9 G/DL (5.7-8.2)
[2022-09-25 15:18] LABS: THYROID STIMULATING HORMONE 0.859 uIU/ML (0.55-4.78)
[2022-09-25 15:21] LABS: CPK CREATINE PHOSPHOKINASE 137 U/L (46-171); MB/CK RELATIVE INDEX 2.04 (< OR =4)
[2022-09-25] MEDS ORDERED: ISOVUE-370 76% 100ML VIAL As Ordered ONE (15:26)
[2022-09-25 15:27] LABS: RSV AMPLIFICATION NEGATIVE (NEGATIVE)
[2022-09-25 16:01] LABS: CK-MB VALUE MASS 2.8 NG/ML (<3.6)
[2022-09-25 16:06] LABS: MB/CK RELATIVE INDEX 2.15 (< OR =4)
[2022-09-25] MEDS ORDERED: LORazepam 2 MG/ML 1ML VIAL IV STA (16:34)
[2022-09-25 19:06] VITALS: O2SAT 96
[2022-09-25 19:30] VITALS: BP 123/81
[2022-09-25] MEDS ORDERED: PRED20TA PO (19:43)
[2022-09-25 19:45] VITALS: O2SAT 99
== END 2022-09-25 20:03 | disposition home or self-care (01) ==
LOC: M ED 14:18
DX: J44.9 Chronic obstructive pulmonary disease, unspecified (principal); F32.A Depression, unspecified; F41.9 Anxiety disorder, unspecified; K21.9 Gastro-esophageal reflux disease without esophagitis; N40.0 Benign prostatic hyperplasia without lower urinary tract symptoms; K44.9 Diaphragmatic hernia without obstruction or gangrene; K64.8 Other hemorrhoids; F17.200 Nicotine dependence, unspecified, uncomplicated; Z88.2 Allergy status to sulfonamides; Z88.8 Allergy status to other drugs, medicaments and biological substances; Z88.5 Allergy status to narcotic agent; Z88.6 Allergy status to analgesic agent; Z79.899 Other long term (current) drug therapy; Z79.51 Long term (current) use of inhaled steroids
CPT/HCPCS: 36600; 71045; 71275; 80048; 80076; 82550; 82553; 82803; 83880; 84443; 84484; 85025; 85379; 87631; 93005; 93041; 94640; 94760; 96374; 99285; J2060; Q9967

== ENCOUNTER → 2022-10-30 | Outpatient (CLI) | payer OTHER, MEDICAID ==
[~2022-10-30] MED LIST changes: +ACE65ERTAB PO; +ACET-683 PO; +ALBU8.5H INH; +AZIT-12 PO; +BACL10TA2 PO; +BUDE10.7 INH; +DICY-61 PO; -DICY10CA13 PO; +DOXY-444 PO; +FLOM0.4C39 PO; +HYDR50TA70 PO; +ONDA-196 PO; +PANT40TA29 PO; +PRED10TA2 PO; +TRAM50TA2 PO; +TRAZ-257 PO
== END ==
LOC: M LAB 09:57
PROVIDERS: ATTEND Internal Medicine
DX: J44.9 Chronic obstructive pulmonary disease, unspecified (principal)

== ENCOUNTER → 2023-02-15 | Outpatient (REF) | payer MEDICARE, MEDICAID ==
[2023-02-15 18:28] LABS: APPEARANCE, URINE HAZY (CLEAR); BACTERIA, URINE AUTO NEGATIVE (NEGATIVE); BILIRUBIN, URINE AUTO NEGATIVE (NEGATIVE); BLOOD, URINE BLOOD NEGATIVE (NEGATIVE); CALCIUM OXALATE CRYSTALS SMALL; COLOR, URINE YELLOW (YELLOW); GLUCOSE, URINE (UA) AUTO NEGATIVE (NEGATIVE); KETONE, URINE AUTO NEGATIVE (NEGATIVE); LEUKOCYTE ESTERASE, URINE AUTO NEGATIVE (NEGATIVE); MUCUS, URINE SMALL (NEGATIVE); NITRITE, URINE AUTO NEGATIVE (NEGATIVE); PROTEIN, URINE AUTO NEGATIVE (NEGATIVE); RBC, URINE AUTO 6 /HPF (0-3); SQUAMOUS EPITHELIAL CELL UR AU 0 /HPF (0-6); UROBILINOGEN, URINE AUTO 0.2 mg/dL (0.0-2.0); WBC, URINE AUTO 2 /HPF (0-3)
== END ==
LOC: M SMT 17:38
PROVIDERS: ATTEND Physician Assistant
DX: R30.0 Dysuria (principal)

== ENCOUNTER 2023-05-30 12:14 | Emergency (ER) | payer MEDICARE, MEDICAID ==
[~2023-05-30] VITALS: Ht 167.6 cm; Wt 47.7 kg
[2023-05-30 14:43] LABS: BASO # 0.1 10^3/uL (0.0-0.2); BASO % 0.8 % (0.0-1.0); EOS # 0.2 10^3/uL (0.0-0.5); EOS % 2.3 % (0.0-3.0); HEMATOCRIT 39.4 % (42.0-52.0); LYMPH # 1.9 10^3/uL (1.5-5.0); LYMPH % 20.5 % (24.0-44.0); MEAN CORPUSCULAR HEMOGLOBIN 34.1 pg (27.0-33.0); MEAN CORPUSCULAR HGB CONC 35.5 g/dl (32.0-36.5); MEAN CORPUSCULAR VOLUME 96.1 fl (80.0-96.0); MONO # 0.8 10^3/uL (0.0-0.8); MONO % 8.7 % (2.0-8.0); NEUTROPHILS # 6.3 10^3/uL (1.5-8.5); NEUTROPHILS % 67.4 % (36.0-66.0); PLATELET COUNT, AUTOMATED 247 10^3/uL (150-450); WHITE BLOOD COUNT 9.3 10^3/uL (4.0-10.0)
[2023-05-30 14:50] LABS: LIPASE 36 U/L (12-53)
[2023-05-30 14:52] LABS: ALBUMIN 3.9 G/DL (3.2-5.2); ALKALINE PHOSPHATASE 113 U/L (46-116); ALT/SGPT 25 U/L (7.0-40); AST/SGOT 20 U/L (<34); BILIRUBIN,DIRECT 0.2 MG/DL (<0.4); BILIRUBIN,TOTAL 0.5 MG/DL (0.3-1.2); BLOOD UREA NITROGEN 14 MG/DL (9-23); CALCIUM LEVEL 8.6 MG/DL (8.3-10.6); CARBON DIOXIDE LEVEL 31 MMOL/L (20-31); CHLORIDE LEVEL 104 MMOL/L (98-107); CREATININE FOR GFR 0.86 MG/DL (0.70-1.30); GLOMERULAR FILTRATION RATE > 60.0 (>49); GLUCOSE, FASTING 89 MG/DL (74-106); POTASSIUM SERUM 4.4 MMOL/L (3.5-5.1); SODIUM LEVEL 136 MMOL/L (136-145); TOTAL PROTEIN 6.4 G/DL (5.7-8.2)
[2023-05-30] MEDS ORDERED: ISOVUE-370 76% 100ML VIAL As Ordered ONE (14:54)
[2023-05-30] MEDS: fentaNYL 100 MCG/2 ML INJECTION IV ONE (17:03)
[2023-05-30 20:02] VITALS: BP 125/80; TEMP 97.4; O2SAT 97
== END 2023-05-30 21:00 | disposition home or self-care (01) ==
LOC: EDBD 12:14 → M ED 12:14
DX: K59.00 Constipation, unspecified (principal); S39.011A Strain of muscle, fascia and tendon of abdomen, initial encounter; Y92.9 Unspecified place or not applicable; Y93.9 Activity, unspecified; Y99.9 Unspecified external cause status; K21.9 Gastro-esophageal reflux disease without esophagitis; N20.0 Calculus of kidney; J44.9 Chronic obstructive pulmonary disease, unspecified; F17.210 Nicotine dependence, cigarettes, uncomplicated; Z88.2 Allergy status to sulfonamides; Z88.8 Allergy status to other drugs, medicaments and biological substances; Z79.1 Long term (current) use of non-steroidal anti-inflammatories (NSAID); Z79.899 Other long term (current) drug therapy; Z79.51 Long term (current) use of inhaled steroids; Z79.2 Long term (current) use of antibiotics
CPT/HCPCS: 71101; 74177; 80048; 80076; 81001; 83690; 85025; 96374; 99284; J3010; Q9967

== ENCOUNTER 2023-06-12 21:03 | Emergency (ER) | payer MEDICARE, MEDICAID ==
[~2023-06-12] VITALS: Ht 165.1 cm; Wt 50.5 kg
[2023-06-12 21:35] LABS: VENOUS BASE EXCESS 1.2 (-2.0-2.0); VENOUS HCO3 26.3 MMOL/L (23.0-27.0); VENOUS O2 SATURATION 92.8 % (60.0-80.0); VENOUS PARTIAL PRESSURE CO2 43.3 mmHg (38.0-50.0); VENOUS PARTIAL PRESSURE O2 65.1 mmHg (30.0-50.0); VENOUS PH 7.401 UNITS (7.330-7.430); VENOUS STANDARD HCO3 25.4 MMOL/L; VENOUS TOTAL CO2 27.6 MMOL/L (24.0-28.0)
[2023-06-12 21:36] LABS: IONIZED CALCIUM 4.6 MG/DL (4.5-5.3)
[2023-06-12 21:39] LABS: BASO # 0.1 10^3/uL (0.0-0.2); BASO % 1.4 % (0.0-1.0); EOS # 0.2 10^3/uL (0.0-0.5); EOS % 2.4 % (0.0-3.0); HEMATOCRIT 35.4 % (42.0-52.0); HEMOGLOBIN 12.9 g/dl (13.5-17.5); LYMPH % 27.9 % (24.0-44.0); MEAN CORPUSCULAR HEMOGLOBIN 34.1 pg (27.0-33.0); MEAN CORPUSCULAR HGB CONC 36.4 g/dl (32.0-36.5); MEAN CORPUSCULAR VOLUME 93.7 fl (80.0-96.0); MONO # 0.7 10^3/uL (0.0-0.8); MONO % 9.6 % (2.0-8.0); NEUTROPHILS # 4.1 10^3/uL (1.5-8.5); NEUTROPHILS % 58.6 % (36.0-66.0); PLATELET COUNT, AUTOMATED 274 10^3/uL (150-450); RED BLOOD COUNT 3.78 10^6/uL (4.30-6.10)
[2023-06-12] MEDS: NS 1,000 ML IV ONE (21:50)
[2023-06-12] MEDS: levETIRAcetam INJection 1,000 MG in D5W 100 ML IV ONE (21:51)
[2023-06-12] MEDS: KETOROLAC 30 MG/ML 1ML VIAL IV ONE (21:51)
[2023-06-12 22:04] LABS: C REACTIVE PROTEIN QUANTITATIV < 0.40 MG/DL (<1.0); ETHYL ALCOHOL (ETHANOL) < 0.003 % (0.000-0.010)
[2023-06-12 22:06] LABS: ALBUMIN 3.7 G/DL (3.2-5.2); ALKALINE PHOSPHATASE 103 U/L (46-116); ALT/SGPT 21 U/L (7.0-40); AST/SGOT 18 U/L (<34); BILIRUBIN,DIRECT 0.1 MG/DL (<0.4); BILIRUBIN,TOTAL 0.3 MG/DL (0.3-1.2); BLOOD UREA NITROGEN 20 MG/DL (9-23); CALCIUM LEVEL 8.9 MG/DL (8.3-10.6); CARBON DIOXIDE LEVEL 28 MMOL/L (20-31); CHLORIDE LEVEL 107 MMOL/L (98-107); CREATININE FOR GFR 0.78 MG/DL (0.70-1.30); GLOMERULAR FILTRATION RATE > 60.0 (>49); GLUCOSE, FASTING 119 MG/DL (74-106); MAGNESIUM LEVEL 1.8 MG/DL (1.8-2.4); PHOSPHORUS LEVEL 3.3 MG/DL (2.4-5.1); SODIUM LEVEL 139 MMOL/L (136-145)
[2023-06-12 22:13] LABS: ERYTHROCYTE SEDIMENTATION RATE 13 mm/hr (0-20); PROCALCITONIN <0.04 ng/ml
[2023-06-12 22:21] LABS: RSV AMPLIFICATION NEGATIVE (NEGATIVE)
[2023-06-12] MEDS ORDERED: DULO1CAP6 PO (23:01)
[2023-06-12] MEDS ORDERED: VARE1TAB2 PO (23:01)
[2023-06-12] MEDS ORDERED: METO10TA2 PO (23:01)
[2023-06-12] MEDS ORDERED: CYCL-707 PO (23:01)
[2023-06-12] MEDS ORDERED: PROA1AER2 INH (23:01)
[2023-06-12] MEDS ORDERED: HOME MED LIST COMPLETE! XX SCH (23:05)
[2023-06-13 02:38] LABS: APPEARANCE, URINE HAZY (CLEAR); BACTERIA, URINE AUTO NEGATIVE (NEGATIVE); BILIRUBIN, URINE AUTO NEGATIVE (NEGATIVE); BLOOD, URINE BLOOD NEGATIVE (NEGATIVE); COLOR, URINE YELLOW (YELLOW); GLUCOSE, URINE (UA) AUTO NEGATIVE (NEGATIVE); KETONE, URINE AUTO NEGATIVE (NEGATIVE); LEUKOCYTE ESTERASE, URINE AUTO NEGATIVE (NEGATIVE); MUCUS, URINE SMALL (NEGATIVE); NITRITE, URINE AUTO NEGATIVE (NEGATIVE); PROTEIN, URINE AUTO NEGATIVE (NEGATIVE); RBC, URINE AUTO 2 /HPF (0-3); SPECIFIC GRAVITY URINE AUTO 1.016 (1.002-1.035); SQUAMOUS EPITHELIAL CELL UR AU 0 /HPF (0-6); UROBILINOGEN, URINE AUTO 0.2 mg/dL (0.0-2.0); WBC, URINE AUTO 3 /HPF (0-3)
[2023-06-13 03:22] LABS: AMPHETAMINES LEVEL URINE NEGATIVE (NEGATIVE); BARBITURATES URINE NEGATIVE (NEGATIVE); COCAINE METABOLITE URINE NEGATIVE (NEGATIVE); METHADONE URINE NEGATIVE (NEGATIVE); OPIATES URINE NEGATIVE (NEGATIVE); PHENCYCLIDINE URINE NEGATIVE (NEGATIVE)
[2023-06-13 03:23] LABS: BENZODIAZEPINES URINE POSITIVE (NEGATIVE); CANNABINOIDS URINE POSITIVE (NEGATIVE)
[2023-06-13] MEDS ORDERED: hydrOXYzine 50 MG TAB PO PRN (07:50)
[2023-06-13] MEDS: BUDESONIDE 0.25 MG/2 ML INHALATION SUSPENSION INH SCH (08:00)
[2023-06-13] MEDS ORDERED: clonazePAM 1 MG TAB PO ONE (08:15)
[2023-06-13] MEDS: FLUTICASONE PROP 0.05% NASAL SPRAY 16 GM (FLONASE) SCH (09:00)
[2023-06-13] MEDS: VARENICLINE 1MG TABLET PO SCH (09:00)
[2023-06-13] MEDS: LORazepam 2 MG/ML 1ML VIAL IV ONE (09:07)
[2023-06-13] MEDS: GABAPENTIN 300 MG CAP PO SCH (09:08)
[2023-06-13] MEDS: TAMSULOSIN 0.4 MG CAP PO SCH (09:08)
[2023-06-13] MEDS: DULoxetine 30MG CAPSULE (CYMBALTA) PO SCH (09:08)
[2023-06-13] MEDS: KETOROLAC 30 MG/ML 1ML VIAL IV ONE (09:08)
[2023-06-13] MEDS: PANTOPRAZOLE 40MG TAB (PROTONIX) PO SCH (09:08)
[2023-06-13] MEDS: clonazePAM 1 MG TAB PO PRN (09:08)
[2023-06-13] MEDS: NS 1,000 ML IV ONE (09:09)
[2023-06-13] MEDS: SYMBICORT 160/4.5MCG INHALER 6GM INH SCH (10:05)
[2023-06-13] MEDS: clonazePAM 1 MG TAB PO ONE (10:30)
[2023-06-13] MEDS: METOCLOPRAMIDE 10MG TAB PO SCH (13:00)
[2023-06-13] MEDS ORDERED: TIOTROPIUM INHALER/CAPSULE (SPIRIVA) INH SCH (13:10)
[2023-06-13] MEDS ORDERED: ALBU2.5V10 INH (13:14)
[2023-06-13] MEDS ORDERED: HYDR50TA70 PO (13:14)
[2023-06-13] MEDS ORDERED: FLON1SPR (13:14)
[2023-06-13] MEDS ORDERED: VARE1TAB2 PO (13:14)
[2023-06-13] MEDS ORDERED: DULO1CAP6 PO (13:14)
[2023-06-13] MEDS ORDERED: CYCL-707 PO (13:14)
[2023-06-13] MEDS ORDERED: TRAZ-257 PO (13:14)
[2023-06-13] MEDS ORDERED: METO10TA2 PO (13:14)
[2023-06-13] MEDS ORDERED: NEUR300C PO (13:14)
[2023-06-13] MEDS ORDERED: PANT40TA29 PO (13:14)
[2023-06-13] MEDS ORDERED: PROA1AER2 INH (13:14)
[2023-06-13] MEDS ORDERED: FLOM0.4C39 PO (13:14)
[2023-06-13] MEDS ORDERED: CLON1TAB8 PO (13:14)
[2023-06-13] MEDS ORDERED: BUDE10.7 INH (13:14)
[2023-06-13] MEDS ORDERED: ONDA-196 PO (13:14)
[2023-06-13] MEDS: ALBUTEROL SULFATE 2.5MG/0.5ML INH NEB SOLN INH PRN (14:07)
[2023-06-13] MEDS: COMBIVENT RESPIMAT 100-20MCG INHALER 4GM INH SCH (14:09)
[2023-06-13] MEDS: methylPREDNISolone 125MG 2ML VIAL IV ONE (14:11)
[2023-06-13] MEDS: DOXYCYCLINE HYCLATE 100MG TABLET PO SCH (14:11)
[2023-06-13 20:37] LABS: ERYTHROCYTE SEDIMENTATION RATE 13 mm/hr (0-20)
[2023-06-13 20:44] LABS: BASO % 0.5 % (0.0-1.0); HEMATOCRIT 35.6 % (42.0-52.0); HEMOGLOBIN 13.1 g/dl (13.5-17.5); LYMPH # 0.5 10^3/uL (1.5-5.0); MEAN CORPUSCULAR HEMOGLOBIN 34.3 pg (27.0-33.0); MEAN CORPUSCULAR VOLUME 93.2 fl (80.0-96.0); MONO % 0.6 % (2.0-8.0); NEUTROPHILS # 5.7 10^3/uL (1.5-8.5); NEUTROPHILS % 90.6 % (36.0-66.0); PLATELET COUNT, AUTOMATED 306 10^3/uL (150-450); RED BLOOD COUNT 3.82 10^6/uL (4.30-6.10); WHITE BLOOD COUNT 6.3 10^3/uL (4.0-10.0)
[2023-06-13 20:45] LABS: MEAN CORPUSCULAR HGB CONC 36.8 g/dl (32.0-36.5)
[2023-06-13 20:58] LABS: C REACTIVE PROTEIN QUANTITATIV < 0.40 MG/DL (<1.0)
[2023-06-13 20:59] LABS: ALBUMIN 3.6 G/DL (3.2-5.2); ALKALINE PHOSPHATASE 96 U/L (46-116); ALT/SGPT 22 U/L (7.0-40); AST/SGOT 20 U/L (<34); BILIRUBIN,TOTAL 0.4 MG/DL (0.3-1.2); BLOOD UREA NITROGEN 17 MG/DL (9-23); CALCIUM LEVEL 8.5 MG/DL (8.3-10.6); CARBON DIOXIDE LEVEL 24 MMOL/L (20-31); CHLORIDE LEVEL 112 MMOL/L (98-107); CHOLESTEROL LEVEL 153 MG/DL (<200); CHOLESTEROL RISK RATIO 2.99 (<5); CREATININE FOR GFR 0.67 MG/DL (0.70-1.30); GLOMERULAR FILTRATION RATE > 60.0 (>49); GLUCOSE, FASTING 124 MG/DL (74-106); HDL CHOLESTEROL 51.1 MG/DL (>40); LDL CHOLESTEROL 90.3 MG/DL (<100); NON-HDL-C 101.9 MG/DL; SODIUM LEVEL 140 MMOL/L (136-145); TOTAL PROTEIN 5.9 G/DL (5.7-8.2); TRIGLYCERIDES LEVEL 58 MG/DL (<150)
[2023-06-13 21:01] LABS: THYROXINE (T4) 11.5 UG/DL (4.5-10.9)
[2023-06-13 21:02] LABS: THYROID STIMULATING HORMONE 0.206 uIU/ML (0.55-4.78)
[2023-06-13 21:06] LABS: PROCALCITONIN <0.04 ng/ml
[2023-06-13] MEDS: traZODone 100 MG TAB PO SCH (22:09)
[2023-06-13] MEDS: predniSONE 20 MG TAB PO SCH (22:09)
[2023-06-13] MEDS: CYCLOBENZAPRINE 10MG TABLET PO SCH (22:09)
[2023-06-13] MEDS: LORazepam 0.5 MG TAB PO PRN (22:15)
[2023-06-13 22:53] LABS: FREE THYROXINE INDEX 4.9 % (1.4-3.8); T UPTAKE 42.4 % (22.5-37.0)
[2023-06-14] MEDS ORDERED: ACETAMINOPHEN TAB 650MG DOSE (2X325MG) PO ONE (02:30)
[2023-06-14 11:17] VITALS: BP 121/80; TEMP 98.4; O2SAT 97
== END 2023-06-14 11:30 | disposition home or self-care (01) ==
LOC: M ED 21:03
DX: G40.89 Other seizures (principal); G43.809 Other migraine, not intractable, without status migrainosus; K21.9 Gastro-esophageal reflux disease without esophagitis; F17.210 Nicotine dependence, cigarettes, uncomplicated; Z88.2 Allergy status to sulfonamides; Z88.8 Allergy status to other drugs, medicaments and biological substances; Z79.51 Long term (current) use of inhaled steroids; Z79.52 Long term (current) use of systemic steroids; Z79.899 Other long term (current) drug therapy
CPT/HCPCS: 70450; 71046; 80048; 80053; 80061; 80076; 80307; 81001; 82077; 82140; 82330; 82803; 82977; 83605; 83735; 84100; 84145; 84436; 84443; 84479; 85025; 85652; 85730; 86140; 87040; 87631; 93005; 93041; 94640; 94760; 96365; 96366; 96374; 96375; 96376; 97116; 97161; 97530; 99285; J1885; J1953; J2060; J2930; J7512

== ENCOUNTER → 2023-07-07 | Outpatient (REF) | payer MEDICARE, MEDICAID ==
[~2023-07-07] MED LIST changes: +METO10TA2 PO; +PROA1AER2 INH; +VARE1TAB2 PO
[2023-07-08 12:52] LABS: APPEARANCE, URINE CLEAR (CLEAR); BACTERIA, URINE AUTO NEGATIVE (NEGATIVE); BILIRUBIN, URINE AUTO NEGATIVE (NEGATIVE); BLOOD, URINE BLOOD NEGATIVE (NEGATIVE); COLOR, URINE YELLOW (YELLOW); GLUCOSE, URINE (UA) AUTO NEGATIVE (NEGATIVE); KETONE, URINE AUTO NEGATIVE (NEGATIVE); LEUKOCYTE ESTERASE, URINE AUTO NEGATIVE (NEGATIVE); NITRITE, URINE AUTO NEGATIVE (NEGATIVE); PROTEIN, URINE AUTO NEGATIVE (NEGATIVE); RBC, URINE AUTO 0 /HPF (0-3); SQUAMOUS EPITHELIAL CELL UR AU 0 /HPF (0-6); UROBILINOGEN, URINE AUTO 0.2 mg/dL (0.0-2.0); WBC, URINE AUTO 0 /HPF (0-3)
[2023-07-08 13:48] LABS: Trichomonas vaginalis (AMP) NOT DETECTED (NEGATIVE)
[2023-07-08 14:11] LABS: GC DNA AMPLIFICATION NEGATIVE (NEGATIVE)
== END ==
LOC: M LAB REF 11:40
PROVIDERS: ATTEND Physician Assistant
DX: Z11.3 Encounter for screening for infections with a predominantly sexual mode of transmission (principal); E10.9 Type 1 diabetes mellitus without complications; Z72.89 Other problems related to lifestyle

== ENCOUNTER → 2023-07-08 | Outpatient (REF) | payer MEDICARE, MEDICAID ==
[2023-07-08 12:56] LABS: BASO # 0.1 10^3/uL (0.0-0.2); BASO % 1.2 % (0.0-1.0); EOS # 0.3 10^3/uL (0.0-0.5); EOS % 3.5 % (0.0-3.0); HEMATOCRIT 39.6 % (42.0-52.0); HEMOGLOBIN 14.4 g/dl (13.5-17.5); LYMPH # 1.8 10^3/uL (1.5-5.0); LYMPH % 23.2 % (24.0-44.0); MEAN CORPUSCULAR HEMOGLOBIN 34.2 pg (27.0-33.0); MEAN CORPUSCULAR HGB CONC 36.4 g/dl (32.0-36.5); MEAN CORPUSCULAR VOLUME 94.1 fl (80.0-96.0); MONO # 0.6 10^3/uL (0.0-0.8); NEUTROPHILS # 4.9 10^3/uL (1.5-8.5); NEUTROPHILS % 63.7 % (36.0-66.0); PLATELET COUNT, AUTOMATED 306 10^3/uL (150-450); RED BLOOD COUNT 4.21 10^6/uL (4.30-6.10); WHITE BLOOD COUNT 7.7 10^3/uL (4.0-10.0)
[2023-07-08 13:24] LABS: PSA SCREENING 0.39 NG/ML (< 4.00)
[2023-07-08 13:28] LABS: THYROID STIMULATING HORMONE 1.058 uIU/ML (0.55-4.78)
[2023-07-08 13:30] LABS: TOTAL 25(OH) VITAMIN D 39.9 NG/ML (20.0-100.0)
[2023-07-08 13:32] LABS: LIPASE 44 U/L (12-53)
[2023-07-08 13:34] LABS: ALBUMIN 3.6 G/DL (3.2-5.2); ALKALINE PHOSPHATASE 120 U/L (46-116); ALT/SGPT 29 U/L (7.0-40); AST/SGOT 22 U/L (<34); BILIRUBIN,TOTAL 0.2 MG/DL (0.3-1.2); BLOOD UREA NITROGEN 12 MG/DL (9-23); CALCIUM LEVEL 9.1 MG/DL (8.3-10.6); CARBON DIOXIDE LEVEL 28 MMOL/L (20-31); CHLORIDE LEVEL 106 MMOL/L (98-107); CHOLESTEROL LEVEL 164 MG/DL (<200); CHOLESTEROL RISK RATIO 2.85 (<5); CREATININE FOR GFR 0.81 MG/DL (0.70-1.30); GLOMERULAR FILTRATION RATE > 60.0 (>49); GLUCOSE, FASTING 97 MG/DL (74-106); HDL CHOLESTEROL 57.4 MG/DL (>40); NON-HDL-C 106.6 MG/DL; POTASSIUM SERUM 4.9 MMOL/L (3.5-5.1); SODIUM LEVEL 138 MMOL/L (136-145); TRIGLYCERIDES LEVEL 98 MG/DL (<150)
[2023-07-08 13:54] LABS: HIV 1&2 SCREEN NEGATIVE (NEGATIVE)
[2023-07-08 14:02] LABS: HEPATITIS C VIRUS ABY INDEX < 0.02 INDEX (<0.8)
== END ==
LOC: M LAB REF 11:48
PROVIDERS: ATTEND Physician Assistant
DX: Z11.9 Encounter for screening for infectious and parasitic diseases, unspecified (principal); R63.6 Underweight; E55.9 Vitamin D deficiency, unspecified; R10.9 Unspecified abdominal pain; Z12.5 Encounter for screening for malignant neoplasm of prostate; E78.00 Pure hypercholesterolemia, unspecified
CPT/HCPCS: 80053; 80061; 82306; 83690; 84443; 85025; 86780; 86803; 87389; G0103

== ENCOUNTER → 2023-07-30 | Outpatient (CLI) | payer MEDICARE, MEDICAID ==
[~2023-07-30] MED LIST changes: +DOXY-440 PO; -DOXY-444 PO
== END ==
LOC: M RAD 07:43
PROVIDERS: ATTEND Physician Assistant
DX: R10.9 Unspecified abdominal pain (principal)

== ENCOUNTER → 2023-08-16 | Outpatient (REF) | payer MEDICARE, MEDICAID ==
[2023-08-16 17:26] LABS: APPEARANCE, URINE HAZY (CLEAR); BACTERIA, URINE AUTO NEGATIVE (NEGATIVE); BILIRUBIN, URINE AUTO NEGATIVE (NEGATIVE); BLOOD, URINE BLOOD NEGATIVE (NEGATIVE); COLOR, URINE AMBER (YELLOW); GLUCOSE, URINE (UA) AUTO NEGATIVE (NEGATIVE); KETONE, URINE AUTO NEGATIVE (NEGATIVE); LEUKOCYTE ESTERASE, URINE AUTO NEGATIVE (NEGATIVE); MUCUS, URINE SMALL (NEGATIVE); NITRITE, URINE AUTO NEGATIVE (NEGATIVE); PROTEIN, URINE AUTO 1+ mg/dL (NEGATIVE); RBC, URINE AUTO 2 /HPF (0-3); SPECIFIC GRAVITY URINE AUTO 1.027 (1.002-1.035); SQUAMOUS EPITHELIAL CELL UR AU 0 /HPF (0-6); UROBILINOGEN, URINE AUTO 0.2 mg/dL (0.0-2.0); WBC, URINE AUTO 2 /HPF (0-3)
== END ==
LOC: M SMT 16:49
PROVIDERS: ATTEND Physician Assistant
DX: R30.0 Dysuria (principal)

== ENCOUNTER → 2023-08-30 | Outpatient (CLI) | payer MEDICARE, MEDICAID ==
[~2023-08-30] MED LIST changes: +GASTROGRAFIN SOLUTION 30ML As Ordered ONE; +ISOVUE-370 76% 100ML VIAL As Ordered ONE
== END ==
LOC: M RAD 14:00
PROVIDERS: ATTEND Physician Assistant
DX: R10.31 Right lower quadrant pain (principal)
CPT/HCPCS: 74177; Q9963; Q9967

== ENCOUNTER → 2023-11-15 | Outpatient (CLI) | payer MEDICARE, MEDICAID ==
[~2023-11-15] MED LIST changes: -GASTROGRAFIN SOLUTION 30ML As Ordered ONE; -ISOVUE-370 76% 100ML VIAL As Ordered ONE
== END ==
LOC: M RAD 12:30
PROVIDERS: ATTEND Internal Medicine Pulmonary Disease
DX: Z87.891 Personal history of nicotine dependence (principal)

== ENCOUNTER → 2023-12-09 | Outpatient (CLI) | payer MEDICARE, MEDICAID ==
[2023-12-09 13:39] LABS: PLATELET COUNT, AUTOMATED 252 10^3/uL (150-450)
[2023-12-09 13:52] LABS: INR 0.98; PROTHROMBIN TIME 12.7 SECONDS (12.5-14.5)
== END ==
LOC: M LAB 13:14
PROVIDERS: ATTEND Physical Medicine & Rehabilitation
DX: Z01.812 Encounter for preprocedural laboratory examination (principal)

== ENCOUNTER → 2023-12-10 | Outpatient (CLI) | payer MEDICARE, MEDICAID | LOC: M LAB 16:17 | PROVIDERS: ATTEND Physical Medicine & Rehabilitation | DX: Z01.812 Encounter for preprocedural laboratory examination (principal) ==

== ENCOUNTER 2024-03-29 14:22 | Emergency (ER) | payer MEDICARE, MEDICAID ==
[~2024-03-29] VITALS: Ht 167.6 cm; Wt 49.1 kg
[2024-03-29] MEDS: methylPREDNISolone 125MG 2ML VIAL IV ONE (18:20)
[2024-03-29 18:28] LABS: BASO # 0.1 10^3/uL (0.0-0.2); BASO % 0.9 % (0.0-1.0); EOS # 0.2 10^3/uL (0.0-0.5); EOS % 1.6 % (0.0-3.0); HEMATOCRIT 37.7 % (42.0-52.0); HEMOGLOBIN 13.4 g/dl (13.5-17.5); LYMPH # 2.1 10^3/uL (1.5-5.0); LYMPH % 20.7 % (24.0-44.0); MEAN CORPUSCULAR HEMOGLOBIN 34.4 pg (27.0-33.0); MEAN CORPUSCULAR HGB CONC 35.5 g/dl (32.0-36.5); MEAN CORPUSCULAR VOLUME 96.7 fl (80.0-96.0); MONO % 9.9 % (2.0-8.0); NEUTROPHILS # 6.7 10^3/uL (1.5-8.5); NEUTROPHILS % 66.6 % (36.0-66.0); PLATELET COUNT, AUTOMATED 237 10^3/uL (150-450); WHITE BLOOD COUNT 10.1 10^3/uL (4.0-10.0)
[2024-03-29] MEDS: IPRATROPIUM 0.5MG/ALBUTEROL 2.5MG INH SOL UD 3ML (DUONEB) NEB SCH (19:01)
[2024-03-29 19:02] LABS: BLOOD UREA NITROGEN 17 MG/DL (9-23); CARBON DIOXIDE LEVEL 29 MMOL/L (20-31); CHLORIDE LEVEL 106 MMOL/L (98-107); CREATININE FOR GFR 0.72 MG/DL (0.70-1.30); GLOMERULAR FILTRATION RATE > 60.0 (>49); GLUCOSE, FASTING 88 MG/DL (74-106); POTASSIUM SERUM 4.3 MMOL/L (3.5-5.1); SODIUM LEVEL 140 MMOL/L (136-145)
[2024-03-29] MEDS ORDERED: ISOVUE-370 76% 100ML VIAL As Ordered ONE (20:16)
[2024-03-29 21:13] VITALS: O2SAT 94
[2024-03-29 21:45] VITALS: TEMP 97.9
[2024-03-29] MEDS ORDERED: AMOX875T2 PO (21:45)
[2024-03-29] MEDS ORDERED: PRED20TA PO (21:45)
[2024-03-29 22:00] VITALS: BP 125/83; O2SAT 94
[2024-03-29] MEDS: AUGMENTIN 875 MG TAB PO ONE (22:08)
== END 2024-03-29 22:23 | disposition home or self-care (01) ==
LOC: M ED 14:22
DX: J44.1 Chronic obstructive pulmonary disease with (acute) exacerbation (principal); J45.909 Unspecified asthma, uncomplicated; F12.10 Cannabis abuse, uncomplicated; Z87.891 Personal history of nicotine dependence; Z88.2 Allergy status to sulfonamides; Z88.1 Allergy status to other antibiotic agents; Z88.5 Allergy status to narcotic agent; Z88.8 Allergy status to other drugs, medicaments and biological substances; Z79.51 Long term (current) use of inhaled steroids; Z79.2 Long term (current) use of antibiotics; Z79.52 Long term (current) use of systemic steroids; Z79.899 Other long term (current) drug therapy
CPT/HCPCS: 71045; 71275; 80048; 85025; 87486; 87581; 87633; 87798; 93005; 94640; 96374; 99285; J2919; Q9967

== ENCOUNTER 2024-05-23 16:24 | Emergency (ER) | payer MEDICARE, MEDICAID ==
[~2024-05-23] VITALS: Ht 167.6 cm; Wt 47.6 kg
[~2024-05-23 16:24] MED LIST changes: +AMOX875T2 PO
[2024-05-23 23:05] LABS: BASO % 0.8 % (0.0-1.0); EOS # 0.1 10^3/uL (0.0-0.5); EOS % 1.4 % (0.0-3.0); HEMATOCRIT 37.5 % (42.0-52.0); HEMOGLOBIN 13.4 g/dl (13.5-17.5); LYMPH # 2.3 10^3/uL (1.5-5.0); LYMPH % 44.2 % (24.0-44.0); MEAN CORPUSCULAR HEMOGLOBIN 33.3 pg (27.0-33.0); MEAN CORPUSCULAR HGB CONC 35.7 g/dl (32.0-36.5); MEAN CORPUSCULAR VOLUME 93.3 fl (80.0-96.0); MONO # 0.7 10^3/uL (0.0-0.8); MONO % 13.6 % (2.0-8.0); NEUTROPHILS # 2.1 10^3/uL (1.5-8.5); NEUTROPHILS % 39.8 % (36.0-66.0); PLATELET COUNT, AUTOMATED 181 10^3/uL (150-450); RED BLOOD COUNT 4.02 10^6/uL (4.30-6.10); WHITE BLOOD COUNT 5.1 10^3/uL (4.0-10.0)
[2024-05-23] MEDS: ALBUTEROL SULFATE 2.5MG/0.5ML INH NEB SOLN NEB ONE (23:06)
[2024-05-23] MEDS: GABAPENTIN 300 MG CAP PO ONE (23:15)
[2024-05-23 23:25] LABS: LIPASE 78 U/L (12-53)
[2024-05-23 23:27] LABS: ALBUMIN 3.6 G/DL (3.2-5.2); ALKALINE PHOSPHATASE 100 U/L (40-129); ALT/SGPT 23 U/L (7.0-40); AST/SGOT 36 U/L (<34); BILIRUBIN,DIRECT < 0.1 MG/DL (<0.4); BILIRUBIN,TOTAL 0.3 MG/DL (0.3-1.2); CK-MB VALUE MASS < 1.0 NG/ML (<3.6); TOTAL PROTEIN 6.2 G/DL (5.7-8.2)
[2024-05-23 23:36] LABS: CPK CREATINE PHOSPHOKINASE 93 U/L (46-171); MB/CK RELATIVE INDEX 1.07 (< OR =4)
[2024-05-24 00:31] LABS: CK-MB VALUE MASS 1.4 NG/ML (<3.6)
[2024-05-24 00:33] LABS: MB/CK RELATIVE INDEX 1.7 (< OR =4)
[2024-05-24 01:15] VITALS: BP 123/85; TEMP 96.8; O2SAT 95
== END 2024-05-24 01:22 | disposition home or self-care (01) ==
LOC: M ED 16:24
DX: U07.1 COVID-19 (principal); J44.9 Chronic obstructive pulmonary disease, unspecified; F41.9 Anxiety disorder, unspecified; F32.A Depression, unspecified; Z87.891 Personal history of nicotine dependence; Z88.2 Allergy status to sulfonamides; Z88.5 Allergy status to narcotic agent; Z88.6 Allergy status to analgesic agent; Z88.8 Allergy status to other drugs, medicaments and biological substances; Z79.51 Long term (current) use of inhaled steroids; Z79.2 Long term (current) use of antibiotics; Z79.52 Long term (current) use of systemic steroids; Z79.899 Other long term (current) drug therapy

== ENCOUNTER → 2024-07-18 | Outpatient (CLI) | payer MEDICARE, MEDICAID ==
[~2024-07-18] MED LIST changes: -AMBI10TA PO; -FLOM0.4C39 PO; +TAMS-18 PO; +ZOLP-533 PO
== END ==
LOC: M LAB 14:28
PROVIDERS: ATTEND Internal Medicine Pulmonary Disease
DX: J44.9 Chronic obstructive pulmonary disease, unspecified (principal)

== ENCOUNTER 2024-07-19 16:40 | Emergency (ER) | payer MEDICARE, MEDICAID ==
[~2024-07-19] VITALS: Ht 167.6 cm; Wt 48.4 kg
[2024-07-19 16:44] VITALS: TEMP 97.8
[2024-07-19 20:07] LABS: BASO # 0.1 10^3/uL (0.0-0.2); BASO % 0.5 % (0.0-1.0); EOS % 0.1 % (0.0-3.0); HEMATOCRIT 37.5 % (42.0-52.0); HEMOGLOBIN 13.6 g/dl (13.5-17.5); LYMPH # 1.8 10^3/uL (1.5-5.0); LYMPH % 16.8 % (24.0-44.0); MEAN CORPUSCULAR HGB CONC 36.3 g/dl (32.0-36.5); MEAN CORPUSCULAR VOLUME 96.4 fl (80.0-96.0); MONO % 8.7 % (2.0-8.0); NEUTROPHILS % 73.6 % (36.0-66.0); PLATELET COUNT, AUTOMATED 265 10^3/uL (150-450); RED BLOOD COUNT 3.89 10^6/uL (4.30-6.10); WHITE BLOOD COUNT 10.9 10^3/uL (4.0-10.0)
[2024-07-19 20:34] LABS: BLOOD UREA NITROGEN 19 MG/DL (9-23); CALCIUM LEVEL 9.2 MG/DL (8.3-10.6); CARBON DIOXIDE LEVEL 33 MMOL/L (20-31); CHLORIDE LEVEL 104 MMOL/L (98-107); CREATININE FOR GFR 0.74 MG/DL (0.70-1.30); GLOMERULAR FILTRATION RATE > 90.0 (>49); GLUCOSE, FASTING 93 MG/DL (74-106); POTASSIUM SERUM 4.1 MMOL/L (3.5-5.1); SODIUM LEVEL 142 MMOL/L (136-145)
[2024-07-19 20:35] LABS: CPK CREATINE PHOSPHOKINASE 51 U/L (46-171); MB/CK RELATIVE INDEX 1.96 (< OR =4)
[2024-07-19] MEDS ORDERED: ISOVUE-370 76% 100ML VIAL As Ordered ONE (21:33)
[2024-07-20 00:46] VITALS: BP 132/89; O2SAT 96
== END 2024-07-20 00:51 | disposition home or self-care (01) ==
LOC: M ED 16:40
DX: R06.00 Dyspnea, unspecified (principal); J44.9 Chronic obstructive pulmonary disease, unspecified; K21.9 Gastro-esophageal reflux disease without esophagitis; Z88.2 Allergy status to sulfonamides; Z88.5 Allergy status to narcotic agent; Z88.1 Allergy status to other antibiotic agents; Z88.6 Allergy status to analgesic agent; Z79.2 Long term (current) use of antibiotics; Z79.51 Long term (current) use of inhaled steroids; Z79.52 Long term (current) use of systemic steroids; Z79.899 Other long term (current) drug therapy
CPT/HCPCS: 36415; 71046; 71275; 80048; 82550; 82553; 84484; 85025; 87486; 87581; 87633; 87798; 87880; 93005; 99285; Q9967

== ENCOUNTER → 2024-10-13 | Outpatient (CLI) | payer MEDICARE, MEDICAID | LOC: M RAD 14:59 | PROVIDERS: ATTEND Physician Assistant | DX: Z12.5 Encounter for screening for malignant neoplasm of prostate (principal); Z90.49 Acquired absence of other specified parts of digestive tract; Z87.442 Personal history of urinary calculi | CPT/HCPCS: 36415; 74018; G0103 ==

== ENCOUNTER → 2024-11-13 | Outpatient (CLI) | payer MEDICARE, MEDICAID ==
[~2024-11-13] MED LIST changes: -ACE65ERTAB PO; +ACET-1515 PO; +ACET-1593 PO; -ACET650T15 PO
== END ==
LOC: M RAD 15:03
PROVIDERS: ATTEND Internal Medicine Pulmonary Disease
DX: R91.8 Other nonspecific abnormal finding of lung field (principal)

== ENCOUNTER → 2024-11-24 | Outpatient (CLI) | payer MEDICARE, MEDICAID ==
[~2024-11-24] MED LIST changes: +E-Z-GAS II EFFERVESCENT PACKET (SODIUM BICARB./CITRIC ACID/SIMETHICONE) As Ordered ONE; +E-Z-HD 98% w/w 340 GM SUSP BTL As Ordered ONE; +E-Z-PAQUE 96% w/w SUSP 176 GM BTL As Ordered ONE
== END ==
LOC: M RAD 10:41
PROVIDERS: ATTEND Physician Assistant
DX: R09.A2 Foreign body sensation, throat (principal)

== ENCOUNTER → 2025-01-01 | Outpatient (CLI) | payer MEDICARE, MEDICAID ==
[~2025-01-01] MED LIST changes: -E-Z-GAS II EFFERVESCENT PACKET (SODIUM BICARB./CITRIC ACID/SIMETHICONE) As Ordered ONE; -E-Z-HD 98% w/w 340 GM SUSP BTL As Ordered ONE; -E-Z-PAQUE 96% w/w SUSP 176 GM BTL As Ordered ONE
== END ==
LOC: M PLAIMG 09:24
PROVIDERS: ATTEND Physician Assistant
DX: S09.90XA Unspecified injury of head, initial encounter (principal); W18.30XA Fall on same level, unspecified, initial encounter; Y92.009 Unspecified place in unspecified non-institutional (private) residence as the place of occurrence of the external cause

== ENCOUNTER → 2025-02-21 | Outpatient (CLI) | payer MEDICARE, MEDICAID ==
[~2025-02-21] MED LIST changes: +ACET-1387 PO; -ACET-1593 PO
== END ==
LOC: M RAD 15:29
PROVIDERS: ATTEND Physician Assistant
DX: M11.262 Other chondrocalcinosis, left knee (principal); M17.12 Unilateral primary osteoarthritis, left knee; M25.562 Pain in left knee

== ENCOUNTER → 2025-02-21 | Outpatient (REF) | payer MEDICARE, MEDICAID | LOC: M LAB REF 16:40 | PROVIDERS: ATTEND Physician Assistant | DX: K29.70 Gastritis, unspecified, without bleeding (principal); M25.562 Pain in left knee; M11.262 Other chondrocalcinosis, left knee; M17.12 Unilateral primary osteoarthritis, left knee ==